=== PATIENT | male | born 1945 | race Hispanic/Latino ===

== ENCOUNTER 2018-03-31 14:33 | Inpatient (IN) | payer MEDICARE ==
[2018-03-31 14:33] VITALS: BMI 22.9
[2018-03-31] MEDS ORDERED: Aspirin 325 mg EC Tablets PO STA (14:54)
[2018-03-31 15:16] LABS: BASO % 0.5 % (0.0-2.0); EOS # 0.1 K/uL (0.0-0.7); HEMOGLOBIN 14.1 g/dL (12.0-18.0); LYMPH % 19.5 % (20.0-40.0); MEAN CELL VOLUME 92.3 fL (80.0-94.0); MEAN CORPUSCULAR HEMOGLOBIN 31.8 pg (27.0-31.0); MEAN CORPUSCULAR HGB CONC 34.5 g/dL (33.0-37.0); MEAN PLATELET VOLUME 8.9 fL (7.2-11.7); MONO # 0.5 K/uL (0.0-0.8); MONO % 10.3 % (0.0-10.0); NEUT # 3.6 K/uL (1.8-7.0); NEUT % 67.7 % (50.0-75.0); RBC 4.41 Mil/uL (4.40-5.90); RED CELL DISTRIBUTION WIDTH 13.7 % (11.5-14.5); WHITE BLOOD COUNT 5.3 K/uL (4.8-10.8)
--- NOTE | 2018-03-31 15:16 | C.PDOC ---
History Of Present Illness 72 year old male with a history of hypertension presents to the emergency department with complaints of chest pain which has worsened over the last few days. Patient reports that his pain is left-sided and sharp, and often lasts for a few minutes at a time. Patient reports no inciting factors, and denies fever or other complaints. Time Seen by Provider: 03/31/18 14:39 Chief Complaint (Nursing): Chest Pain History Per: Patient History/Exam Limitations: no limitations Onset/Duration Of Symptoms: Days Current Symptoms Are (Timing): Worse Quality: Sharp, "Pain" Past Medical History Reviewed: Historical Data, Nursing Documentation, Vital Signs Vital Signs: Last Vital Signs Temp 98.5 F 03/31/18 16:36 Pulse 60 03/31/18 16:36 Resp 18 03/31/18 16:36 BP 168/89 H 03/31/18 16:36 Pulse Ox 99 03/31/18 16:36 - Medical History PMH: Hypercholesterolemia, Seizures Surgical History: No Surg Hx - [facility] Procedures ESOPHAGOGASTRODUODENOSCOPY [EGD] W/CLOSED BIOPSY (04/04/04) Family History: States: No Known Family Hx - Social History Hx Alcohol Use: No Hx Substance Use: No - Immunization History Hx Tetanus Toxoid Vaccination: No Review Of Systems Except As Marked, All Systems Reviewed And Found Negative. Cardiovascular: Positive for: Chest Pain Physical Exam - Physical Exam Appears: Non-toxic, No Acute Distress Skin: Warm, Dry Head: Atraumatic, Normacephalic Eye(s): bilateral: Normal Inspection Nose: Normal Oral Mucosa: Moist Neck: Normal ROM, Supple Chest: Symmetrical, No Deformity, No Tenderness Cardiovascular: Rhythm Regular, No Murmur Respiratory: Normal Breath Sounds, No Rales, No Rhonchi, No Wheezing Gastrointestinal/Abdominal: Normal Exam, Soft, No Tenderness, No Guarding, No Rebound Neurological/Psych: Oriented x3, Normal Speech, Normal Cognition ED Course And Treatment - Laboratory Results Result Diagrams: 03/31/18 15:14 03/31/18 15:14 ECG Rhythm: Sinus Rhythm (68bpm), Nonspecific Changes O2 Sat by Pulse Oximetry: 98 (RA) Pulse Ox Interpretation: Normal Medical Decision Making Medical Decision Making: Plan: EKG CMP Troponin CBC PTT Prothrombin CXR One [facility] Ecotrin 325mg PO cp ro acs- labs imaging pending 400: pt reassesd dr mesa bedside accpets case for obs. Disposition - Disposition Disposition: HOSPITALIZED Disposition Time: 05:00 Condition: STABLE - Clinical Impression Clinical Impression: Chest pain - Scribe Statement The provider has reviewed the documentation as recorded by the Scribe (Ender Adam) Provider Attestation: All medical record entries made by the Scribe were at my direction and personally dictated by me. I have reviewed the chart and agree that the record accurately reflects my personal performance of the history, physical exam, medical decision making, and the department course for this patient. I have also personally directed, reviewed, and agree with the discharge instructions and disposition. Decision To Admit - Pt Status Changed To: Hospital Disposition Of: Observation - . Bed Request Type: Telemetry Admitting Physician: Israel Mesa Patient Diagnosis: Chest pain
[2018-03-31 15:25] LABS: INR 1.1; PROTHROMBIN TIME 12.2 SECONDS (9.7-12.2)
[2018-03-31 15:30] LABS: ALB/GLOB RATIO 1.4 (1.0-2.1); ALBUMIN 4.1 g/dL (3.5-5.0); ALT/SGPT 48 U/L (21-72); AST/SGOT 34 U/L (17-59); BLOOD UREA NITROGEN 11 mg/dL (9-20); CALCIUM 9.3 mg/dl (8.6-10.4); GFR AFRICAN-AMERICAN > 60; GFR NON-AFRICAN AMERICAN > 60
[2018-03-31] MEDS: Phenytoin 100 mg/4 ml Oral Susp UD PO SCH ×2 (16:28→23:09)
--- NOTE | 2018-03-31 16:42 | RAD ---
PROCEDURE: CHEST RADIOGRAPH, 1 VIEW HISTORY: chest pain COMPARISON: No prior FINDINGS: LUNGS: Mild hyperinflation with the coarsened interstitial markings; ; rule out underlying emphysema or COPD. . No focal consolidation. PLEURA: No pneumothorax or pleural fluid seen. CARDIOVASCULAR: Cardiomegaly OSSEOUS STRUCTURES: No significant abnormalities. VISUALIZED UPPER ABDOMEN: Normal. OTHER FINDINGS: None. IMPRESSION: Mild hyperinflation with the coarsened interstitial markings; ; rule out underlying emphysema or COPD. . No focal consolidation.
--- NOTE | 2018-03-31 23:30 | CP.PCM.HP ---
Past Patient History - Infectious Disease Hx of Infectious Diseases: None - Past Social History Smoking Status: Never Smoked - CARDIAC Hx Hypercholesterolemia: Yes - NEUROLOGICAL Hx Seizures: Yes - MUSCULOSKELETAL/RHEUMATOLOGICAL Hx Falls: No - PSYCHIATRIC Hx Substance Use: No - ANESTHESIA Hx Anesthesia: No Meds Allergies/Adverse Reactions: Allergies Allergy/AdvReac Type Severity Reaction Status Date / Time No Known Allergies Allergy Verified 03/03/18 14:36 Results - Vital Signs Recent Vital Signs: Last Vital Signs Temp 98 F 03/31/18 22:38 Pulse 55 L 03/31/18 23:13 Resp 20 03/31/18 22:38 BP 138/81 03/31/18 22:38 Pulse Ox 98 03/31/18 22:38 - Labs Result Diagrams: 03/31/18 15:14 03/31/18 15:14 Labs: Laboratory Results - last 24 hr 03/31/18 03/31/18 03/31/18 15:14 15:14 15:14 WBC 5.3 RBC 4.41 Hgb 14.1 Hct 40.7 MCV 92.3 MCH 31.8 H MCHC 34.5 RDW 13.7 Plt Count 155 MPV 8.9 Neut % (Auto) 67.7 Lymph % (Auto) 19.5 L [place] % (Auto) 10.3 H Eos % (Auto) 2.0 Baso % (Auto) 0.5 Neut # (Auto) 3.6 Lymph # (Auto) 1.0 [place] # (Auto) 0.5 Eos # (Auto) 0.1 Baso # (Auto) 0.0 PT 12.2 INR 1.1 APTT 31 Sodium 135 Potassium 3.7 Chloride 98 Carbon Dioxide 27 Anion Gap 13 BUN 11 Creatinine 0.8 Est GFR ( Amer) > 60 Est GFR (Non-Af Amer) > 60 Random Glucose 108 Calcium 9.3 Total Bilirubin 0.6 AST 34 ALT 48 Alkaline Phosphatase 67 Total Creatine Kinase CK-MB (Mass) Troponin I < 0.0120 Total Protein 7.1 Albumin 4.1 Globulin 2.9 Albumin/Globulin Ratio 1.4 03/31/18 17:38 WBC RBC Hgb Hct MCV MCH MCHC RDW Plt Count MPV Neut % (Auto) Lymph % (Auto) [place] % (Auto) Eos % (Auto) Baso % (Auto) Neut # (Auto) Lymph # (Auto) [place] # (Auto) Eos # (Auto) Baso # (Auto) PT INR APTT Sodium Potassium Chloride Carbon Dioxide Anion Gap BUN Creatinine Est GFR ( Amer) Est GFR (Non-Af Amer) Random Glucose Calcium Total Bilirubin AST ALT Alkaline Phosphatase Total Creatine Kinase 59 CK-MB (Mass) 2.00 Troponin I < 0.0120 Total Protein Albumin Globulin Albumin/Globulin Ratio
--- NOTE | 2018-04-01 05:21 | CON ---
DATE: 03/31/2018 CARDIOLOGY CONSULTATION REASON FOR CONSULTATION: Chest pain. HISTORY OF PRESENT ILLNESS: The patient is a 72-year-old white male, nonsmoker, has a history of hypertension, presented to the emergency room because of chest pain that is sharp in nature that he has been experiencing for the past few days. The patient denies any reason for chest discomfort. He does report weakness and dizziness at times. The patient presented on 07/31/2018 to [facility] and was admitted; however, apparently he was not happy with the service that was done there and he decided at this time to come to [facility]. The workup at that time included head CT scan without contrast, which was unremarkable. Carotid ultrasound, which revealed no significant disease with antegrade flow in post vertebral artery. An echocardiographic study, which revealed normal ejection fraction with mild hypokinesis in the mid inferolateral wall. Initial EKG during admission revealed normal sinus rhythm with nonspecific ST-T wave changes and troponins were negative x3 at that time. SOCIAL HISTORY: The patient is nonsmoker. He remembers smoking at age 17 only. He is . He lives with his sister and his daughter. MEDICATIONS: Crestor 10 mg once a day, Dilantin 100 mg every 8 hours, aspirin 81 mg once a day, Lovenox 40 mg subcutaneous once a day, Synthroid 25 mcg once a day, Pepcid 40 mg twice a day. REVIEW OF SYSTEMS: No nausea or vomiting. No fever or chills. PAST MEDICAL HISTORY: Hypertension. PHYSICAL EXAMINATION: GENERAL: The patient is an elderly male, who does not appear to be in acute distress. VITAL SIGNS: Blood pressure 168/89, heart rate 60, temperature 98.5, respirations 18. HEENT: Normocephalic. CHEST: Clear. HEART: S1 and S2 regular. ABDOMEN: Soft. EXTREMITIES: No edema. LABORATORY DATA: SMA-7: Sodium 135, potassium 3.7, chloride 98, CO2 27, glucose 108, BUN 11, creatinine 0.8. One set of troponin is negative. CBC: WBC 5.3, hemoglobin 14.1, hematocrit 40.7, and platelet count 155,000. Dilantin level is subtherapeutic at 6. PT/PTT and INR are within normal limits. DIAGNOSTIC DATA: EKG revealed normal sinus rhythm at the rate of 68. ASSESSMENT: 1. Chest pain, myocardial infarction is ruled out. 2. Hypertension. 3. History of seizures. 4. Segmental hypokinesis on recent echocardiographic study. RECOMMENDATIONS: Continue current Crestor 10 mg once a day, aspirin 81 mg once a day, Synthroid 25 mcg once a day. Start Crestor at 20 mg once a day. I will review the echocardiographic study and consider cardiac catheterization if the patient agrees for the procedure and is cleared from other medical issues. Ashu Tong MD
[2018-04-01] MEDS: Levothyroxine 25 MCG TAB PO SCH (05:35)
[2018-04-01] MEDS: Phenytoin 100 mg/4 ml Oral Susp UD PO SCH ×3 (05:35→21:54)
[2018-04-01] MEDS: Enoxaparin 40 mg Syringe SC SCH (09:07)
--- NOTE | 2018-04-01 09:37 | HP ---
CHIEF COMPLAINT: Left-sided chest pain. HISTORY OF PRESENT ILLNESS: This is a 72-year-old white male who is nonsmoker with a no known past medical history of diabetes, hypertension, hyperlipidemia. The patient is taking seizure medication, and the patient lives with his brother and sister. He is compliant with the diet medication for the last two days. He has been having left-sided sharp chest pain, lasting about 2 minutes. It is in the left precordial area. It is mostly nonexertional, not associated with diaphoresis or dizziness. No cough, no fever, no dyspepsia, no pleurisy. There is no history of nausea, vomiting. The patient denies any abdominal pain. The patient denies any joint pain. The patient denies any history of any relation with exertion. The patient denies any polyuria, polydipsia, polyphagia. He denies any hematuria, pyuria. He denies any sneezing, itchy eyes, itchy nose. There is no history of trauma or fall. There is no history of seizure-like activity. The patient denies any tingling, numbness, or paresthesias. The patient denies any cough. CURRENT MEDICATIONS: The patient is on Dilantin and Synthroid. SOCIAL HISTORY: Nonsmoker, and he denies drinking. FAMILY HISTORY: Noncontributory. PHYSICAL EXAMINATION: GENERAL: An elderly male in no acute distress. VITAL SIGNS: Blood pressure 138/81, pulse 55, respiratory rate 20, temperature 96. SKIN: No purpura. No petechiae. No bruises. No ecchymosis. No scarring. HEENT: Atraumatic, normocephalic. Negative pallor. Negative jaundice. Extraocular movements are intact. NECK: Supple. Flat neck veins. No JVD. No lymph node. No thyromegaly. No carotid bruit. CHEST WALL: Bilateral symmetrical. LUNGS: Bilaterally clear. No rales, no rhonchi. CVS: S1, S2 plus. S4 positive. ABDOMEN: Soft, nontender. Bowel sounds are positive. No masses. GENITALIA: Normal. RECTAL: Negative for enlarged prostate. EXTREMITIES: No clubbing, cyanosis, or edema. BOARDING KENNEL OR CATTERY OPERATOR: The patient is awake, alert, oriented x3. Cranial nerve II through XII are normal. Power is 5/5 x4. Plantar's are downgoing. ASSESSMENT: 1. Chest pain, rule out myocardial infarction. 2. Hypertension. 3. Seizure disorder. 4. Hypothyroidism. PLAN: Admit. Detailed orders written. Seen and examined. Israel Mesa MD
--- NOTE | 2018-04-01 20:56 | PN ---
DATE: 04/01/2018 SUBJECTIVE: The patient denies chest pain or dizziness at this time. He was noted to have sinus bradycardia in the 50s. The lowest heart rate was 48 today. PHYSICAL EXAMINATION: VITAL SIGNS: Blood pressure 114/75, heart rate 58, temperature 98.6, respirations 20. HEENT: Normocephalic. CHEST: Clear. HEART: S1 and S2 regular. EXTREMITIES: No edema. LABORATORY DATA: Three sets of troponins are negative. within normal limits. ASSESSMENT: 1. Chest pain, myocardial infarction ruled out. 2. Hypertension. 3. Sinus bradycardia. 4. History of seizure. 5. Segmental hypokinesis on a recent echocardiographic study. RECOMMENDATIONS: Continue current Cozaar 25 mg once a day, Crestor 10 mg once a day, Dilantin 100 mg four times a day, and Synthroid 25 mcg once a day. We will discuss the indication of cardiac catheterization with the primary physician, Dr. Israel Mesa. Ashu Tong MD
--- NOTE | 2018-04-01 23:37 | CP.PCM.PN ---
Objective - Vital Signs/Intake and Output Vital Signs (last 24 hours): Temp Pulse Resp BP Pulse Ox 97.9 F 60 16 104/70 96 04/01/18 22:00 04/01/18 22:00 04/01/18 22:00 04/01/18 22:00 04/01/18 16:00 Intake and Output: 04/01/18 04/02/18 18:59 06:59 Intake Total 420 Balance 420 - Medications Medications: Current Medications Aspirin (Ecotrin) 81 mg PO DAILY [facility] Last Admin: 04/01/18 09:07 Dose: 81 mg Enoxaparin Sodium (Lovenox) 40 mg SC DAILY [facility] Last Admin: 04/01/18 09:07 Dose: 40 mg Famotidine (Pepcid) 40 mg PO DAILY [facility] Last Admin: 04/01/18 09:07 Dose: 40 mg Levothyroxine Sodium (Synthroid) 25 mcg PO DAILY@0630 [facility] Last Admin: 04/01/18 05:35 Dose: 25 mcg Losartan Potassium (Cozaar) 25 mg PO DAILY [facility] Last Admin: 04/01/18 09:07 Dose: 25 mg Phenytoin (Dilantin) 100 mg PO Q8 [facility] Last Admin: 04/01/18 21:54 Dose: 100 mg Rosuvastatin Calcium (Crestor) 10 mg PO HS [facility] Last Admin: 04/01/18 21:54 Dose: 10 mg - Labs Labs: 03/31/18 15:14 03/31/18 15:14 PT 12.2 SECONDS (9.7-12.2) 03/31/18 15:14 INR 1.1 03/31/18 15:14 APTT 31 SECONDS (21-34) 03/31/18 15:14
--- NOTE | 2018-04-02 05:17 | PN ---
DATE: 04/01/2018 SUBJECTIVE: The patient denies any chest pain today. He denies any nausea or vomiting. PHYSICAL EXAMINATION: LUNGS: Clear. CVS: S1, S2 are regular. ABDOMEN: Soft. ASSESSMENT: 1. Chest pain. Bradycardia. Rule out acute myocardial infarction. 2. Hypertension. PLAN: Medical management. Cardiology evaluation. Monitor the patient. Israel Mesa MD
[2018-04-02] MEDS: Phenytoin 100 mg/4 ml Oral Susp UD PO SCH ×3 (06:00→21:01)
[2018-04-02] MEDS: Levothyroxine 25 MCG TAB PO SCH (06:01)
--- NOTE | 2018-04-02 06:02 | PN ---
DATE: 04/02/2018 SUBJECTIVE: The patient denies any chest pain today. He denies any nausea or vomiting. PHYSICAL EXAMINATION: LUNGS: Clear. CVS: S1, S2, regular. ABDOMEN: Soft. ASSESSMENT: 1. Chest pain. Bradycardia. Rule out acute myocardial infarction. 2. Hypertension. PLAN: Medical management. Cardiology evaluation. Monitor the patient. Israel Mesa MD
[2018-04-02] MEDS: Enoxaparin 40 mg Syringe SC SCH (09:10)
[2018-04-02 11:17] LABS: BASO % 0.3 % (0.0-2.0); EOS # 0.2 K/uL (0.0-0.7); EOS % 2.8 % (0.0-4.0); HEMOGLOBIN 13.3 g/dL (12.0-18.0); LYMPH # 0.9 K/uL (1.0-4.3); LYMPH % 14.5 % (20.0-40.0); MEAN CELL VOLUME 93.6 fL (80.0-94.0); MEAN CORPUSCULAR HEMOGLOBIN 31.4 pg (27.0-31.0); MEAN CORPUSCULAR HGB CONC 33.6 g/dL (33.0-37.0); MEAN PLATELET VOLUME 9.1 fL (7.2-11.7); MONO # 0.7 K/uL (0.0-0.8); MONO % 11.5 % (0.0-10.0); NEUT # 4.2 K/uL (1.8-7.0); NEUT % 70.9 % (50.0-75.0); NRBC % 0.1 % (0.0-2.0); RBC 4.24 Mil/uL (4.40-5.90)
[2018-04-02 11:34] LABS: ALB/GLOB RATIO 1.4 (1.0-2.1); ALBUMIN 3.7 g/dL (3.5-5.0); ALT/SGPT 48 U/L (21-72); AST/SGOT 30 U/L (17-59); BLOOD UREA NITROGEN 19 mg/dL (9-20); CALCIUM 8.9 mg/dl (8.6-10.4); GFR AFRICAN-AMERICAN > 60; GFR NON-AFRICAN AMERICAN > 60
--- NOTE | 2018-04-02 19:14 | PN ---
DATE: 04/02/2018 SUBJECTIVE: The patient denies chest pain. He complains of weakness and at times postural dizziness. PHYSICAL EXAMINATION: VITAL SIGNS: Blood pressure /75, heart rate 96, temperature 98, respirations 18. HEENT: Normocephalic. CHEST: Clear. HEART: S1 and S2 regular. EXTREMITIES: No edema. LABORATORY DATA: Today's SMA-7 is entirely within normal limits. Today's hemoglobin and hematocrit 13.3 and 39.7. White count and platelet count are within normal limits. ASSESSMENT: 1. Chest pain, myocardial infarction was ruled out. 2. Segmental hypokinesis on a recent echocardiographic study suggestive of underlying coronary artery disease. 3. Hypothyroidism. 4. Hypertension. RECOMMENDATIONS: Continue Cozaar 25 mg once a day, aspirin 81 mg once a day, Lovenox 40 mg once a day, Synthroid 25 mcg once a day. Cardiac catheterization was recommended. Procedure as well as risk were explained to the patient, understood and agreed for the procedure. The patient scheduled for tomorrow cath at 12 noon at [facility]. Ashu Tong MD
--- NOTE | 2018-04-02 23:47 | CP.PCM.PN ---
Subjective - Date & Time of Evaluation Date of Evaluation: 04/02/18 Time of Evaluation: 19:00 - Subjective Subjective: Pt seen and examined at bedside Objective - Vital Signs/Intake and Output Vital Signs (last 24 hours): Temp Pulse Resp BP Pulse Ox 98 F 59 L 20 125/81 95 04/02/18 16:16 04/02/18 20:29 04/02/18 16:16 04/02/18 16:16 04/02/18 16:16 Intake and Output: 04/02/18 04/03/18 18:59 06:59 Intake Total 800 Output Total 600 Balance -600 800 - Medications Medications: Current Medications Aspirin (Ecotrin) 81 mg PO DAILY [facility] Last Admin: 04/02/18 09:10 Dose: 81 mg Famotidine (Pepcid) 40 mg PO DAILY [facility] Last Admin: 04/02/18 09:10 Dose: 40 mg Levothyroxine Sodium (Synthroid) 25 mcg PO DAILY@0630 [facility] Last Admin: 04/02/18 06:01 Dose: 25 mcg Losartan Potassium (Cozaar) 25 mg PO DAILY [facility] Last Admin: 04/02/18 09:10 Dose: 25 mg Phenytoin (Dilantin) 100 mg PO Q8 [facility] Last Admin: 04/02/18 21:01 Dose: 100 mg Rosuvastatin Calcium (Crestor) 10 mg PO HS [facility] Last Admin: 04/02/18 21:01 Dose: 10 mg - Labs Labs: 04/02/18 11:06 04/02/18 11:06 PT 12.2 SECONDS (9.7-12.2) 03/31/18 15:14 INR 1.1 03/31/18 15:14 APTT 31 SECONDS (21-34) 03/31/18 15:14
[2018-04-03] MEDS: Phenytoin 100 mg/4 ml Oral Susp UD PO SCH ×3 (05:30→21:11)
[2018-04-03] MEDS: Levothyroxine 25 MCG TAB PO SCH (05:30)
[2018-04-03 08:09] LABS: BASO % 0.6 % (0.0-2.0); EOS # 0.2 K/uL (0.0-0.7); EOS % 3.5 % (0.0-4.0); HEMOGLOBIN 13.9 g/dL (12.0-18.0); LYMPH % 17.7 % (20.0-40.0); MEAN CELL VOLUME 92.3 fL (80.0-94.0); MEAN CORPUSCULAR HEMOGLOBIN 31.8 pg (27.0-31.0); MEAN CORPUSCULAR HGB CONC 34.4 g/dL (33.0-37.0); MONO # 0.6 K/uL (0.0-0.8); NEUT # 3.5 K/uL (1.8-7.0); NEUT % 66.2 % (50.0-75.0); NRBC % 0.1 % (0.0-2.0); RBC 4.38 Mil/uL (4.40-5.90); RED CELL DISTRIBUTION WIDTH 13.7 % (11.5-14.5); WHITE BLOOD COUNT 5.4 K/uL (4.8-10.8)
[2018-04-03 08:16] LABS: ALB/GLOB RATIO 1.3 (1.0-2.1); ALBUMIN 3.6 g/dL (3.5-5.0); ALT/SGPT 49 U/L (21-72); AST/SGOT 32 U/L (17-59); BLOOD UREA NITROGEN 13 mg/dL (9-20); GFR AFRICAN-AMERICAN > 60; GFR NON-AFRICAN AMERICAN > 60
[2018-04-03] MEDS ORDERED: Lidocaine 2% MPF (5 ml) Inj ONE (11:54)
[2018-04-03] MEDS ORDERED: Iodixanol 320 MG/ML 100 ML BOTTLE IV ONE ×2 (11:54→12:44)
[2018-04-03] MEDS ORDERED: Midazolam 2 MG/2 ML VIAL ONE (11:55)
[2018-04-03] MEDS ORDERED: Sodium Chloride 0.9% 500 ML IV SCH (13:30)
--- NOTE | 2018-04-03 23:58 | CP.PCM.PN ---
Subjective - Date & Time of Evaluation Date of Evaluation: 04/03/18 Time of Evaluation: 17:35 - Subjective Subjective: Pt seen and examined at bedside Objective - Vital Signs/Intake and Output Vital Signs (last 24 hours): Temp Pulse Resp BP Pulse Ox 97.9 F 72 20 100/62 95 04/03/18 16:08 04/03/18 17:00 04/03/18 16:08 04/03/18 16:08 04/03/18 16:08 Intake and Output: 04/03/18 04/04/18 18:59 06:59 Intake Total 1400 Balance 1400 - Medications Medications: Current Medications Aspirin (Ecotrin) 81 mg PO DAILY [facility] Last Admin: 04/03/18 09:54 Dose: Not Given Famotidine (Pepcid) 40 mg PO DAILY [facility] Last Admin: 04/03/18 09:54 Dose: Not Given Levothyroxine Sodium (Synthroid) 25 mcg PO DAILY@0630 [facility] Last Admin: 04/03/18 05:30 Dose: 25 mcg Losartan Potassium (Cozaar) 25 mg PO DAILY [facility] Last Admin: 04/03/18 09:53 Dose: 25 mg Phenytoin (Dilantin) 100 mg PO Q8 [facility] Last Admin: 04/03/18 21:11 Dose: 100 mg Rosuvastatin Calcium (Crestor) 10 mg PO HS [facility] Last Admin: 04/03/18 21:10 Dose: 10 mg - Labs Labs: 04/03/18 08:17 04/03/18 07:50 PT 12.2 SECONDS (9.7-12.2) 03/31/18 15:14 INR 1.1 03/31/18 15:14 APTT 31 SECONDS (21-34) 03/31/18 15:14
[2018-04-04] MEDS: Phenytoin 100 mg/4 ml Oral Susp UD PO SCH ×3 (06:29→22:15)
[2018-04-04] MEDS: Levothyroxine 25 MCG TAB PO SCH (06:29)
--- NOTE | 2018-04-04 07:42 | CARDCATH ---
PROCEDURE DATE: 04/03/2018 LEFT HEART CATHETERIZATION INDICATIONS: The patient is a 72-year-old white male who presented because of chest pain. Myocardial infarction was ruled out. The patient was reported to have segmental hypokinesis on the recent echocardiographic study performed in [facility]. Cardiac catheterization was recommended. The procedure and its risks were fully explained to the patient who understood them and agreed for the procedure. PROCEDURE: After local infiltration with 1% lidocaine, a 6-Kazakh sheath was placed in the right femoral artery. Left and right coronary angiography was performed with 6-Kazakh JL4 and JR2 diagnostic catheters. Left ventriculogram was performed with a 6-Kazakh pigtail catheter. The patient tolerated the procedure well without any complications. ANGIOGRAPHIC FINDINGS: Selective injection of the left coronary artery revealed the left main to be a large caliber vessel that bifurcated into medium-sized LAD and medium-sized ramus and medium-sized circumflex artery. LAD had a proximal 50% to 60% stenosis. The rest of the left coronary artery circulation was angiographically unremarkable. Selective injection of the right coronary artery revealed an anterior take-off of that vessel, which was large caliber, ectatic, and dominant vessel. There was no significant disease. Left ventriculogram performed in [facility] projection revealed normal wall motion. Overall ejection fraction was estimated at 65%. CONCLUSION: A 56% proximal left anterior descending stenosis. RECOMMENDATIONS: Continue with medical management as recommended. Ashu Tong MD
[2018-04-04 07:48] LABS: BASO % 0.6 % (0.0-2.0); EOS # 0.2 K/uL (0.0-0.7); EOS % 3.2 % (0.0-4.0); HEMOGLOBIN 13.6 g/dL (12.0-18.0); LYMPH % 13.9 % (20.0-40.0); MEAN CELL VOLUME 92.4 fL (80.0-94.0); MEAN CORPUSCULAR HEMOGLOBIN 32.1 pg (27.0-31.0); MEAN CORPUSCULAR HGB CONC 34.8 g/dL (33.0-37.0); MEAN PLATELET VOLUME 8.9 fL (7.2-11.7); MONO # 0.8 K/uL (0.0-0.8); MONO % 10.9 % (0.0-10.0); NEUT % 71.4 % (50.0-75.0); NRBC % 0.1 % (0.0-2.0); RBC 4.25 Mil/uL (4.40-5.90); RED CELL DISTRIBUTION WIDTH 14.1 % (11.5-14.5)
[2018-04-04 08:00] LABS: ALB/GLOB RATIO 1.4 (1.0-2.1); ALBUMIN 3.7 g/dL (3.5-5.0); ALT/SGPT 54 U/L (21-72); AST/SGOT 30 U/L (17-59); BLOOD UREA NITROGEN 14 mg/dL (9-20); CALCIUM 8.9 mg/dl (8.6-10.4); GFR AFRICAN-AMERICAN > 60; GFR NON-AFRICAN AMERICAN > 60
--- NOTE | 2018-04-04 19:47 | PN ---
DATE: 04/04/2018 SUBJECTIVE: The patient denies any chest pain or shortness of breath. No groin bleeding. PHYSICAL EXAMINATION: VITAL SIGNS: Blood pressure 123/83, heart 67, temperature 97.5, respirations 20. HEENT: Normocephalic. CHEST: Clear. HEART: S1 and S2, regular. ABDOMEN: Soft. EXTREMITIES: No groin hematoma and adequate distal pulses. LABORATORY DATA: Hemoglobin and hematocrit 15.6 and 39.3. White count and platelet count are within normal limit. SMA-7 today is entirely within normal limit. ASSESSMENT: 1. Chest pain, myocardial infarction was ruled out. 2. A 50 to 60% stenosis of the proximal left anterior descending. 3. Hypothyroidism. RECOMMENDATION: Continue aspirin 81 mg once a day, Cozaar 25 mg once a day, Crestor 10 mg once a day, Synthroid 25 mcg once a day. Case was discussed with Dr. Israel Mesa and a trial of conservative medical therapy is recommended. Beta-blockers are contraindicated in view of history of bradycardia on presentation. Ashu Tong MD
--- NOTE | 2018-04-04 22:25 | CP.PCM.PN ---
Subjective - Date & Time of Evaluation Date of Evaluation: 04/04/18 Time of Evaluation: 18:35 - Subjective Subjective: Pt seen and examined at bedside, Objective - Vital Signs/Intake and Output Vital Signs (last 24 hours): Temp Pulse Resp BP Pulse Ox 98.6 F 68 20 116/82 95 04/04/18 16:00 04/04/18 16:00 04/04/18 16:00 04/04/18 16:00 04/04/18 16:00 Intake and Output: 04/04/18 04/05/18 18:59 06:59 Intake Total 800 Balance 800 - Medications Medications: Current Medications Aspirin (Ecotrin) 81 mg PO DAILY [facility] Last Admin: 04/04/18 09:14 Dose: 81 mg Famotidine (Pepcid) 40 mg PO DAILY [facility] Last Admin: 04/04/18 09:14 Dose: 40 mg Levothyroxine Sodium (Synthroid) 25 mcg PO DAILY@0630 [facility] Last Admin: 04/04/18 06:29 Dose: 25 mcg Losartan Potassium (Cozaar) 25 mg PO DAILY [facility] Last Admin: 04/04/18 09:14 Dose: 25 mg Phenytoin (Dilantin) 100 mg PO Q8 [facility] Last Admin: 04/04/18 22:15 Dose: 100 mg Rosuvastatin Calcium (Crestor) 10 mg PO HS [facility] Last Admin: 04/04/18 22:15 Dose: 10 mg - Labs Labs: 04/04/18 07:30 04/04/18 07:30 PT 12.2 SECONDS (9.7-12.2) 03/31/18 15:14 INR 1.1 03/31/18 15:14 APTT 31 SECONDS (21-34) 03/31/18 15:14
[2018-04-05] MEDS: Levothyroxine 25 MCG TAB PO SCH (05:32)
[2018-04-05] MEDS: Phenytoin 100 mg/4 ml Oral Susp UD PO SCH ×3 (05:32→21:20)
[2018-04-05 08:52] LABS: BASO % 0.5 % (0.0-2.0); EOS # 0.2 K/uL (0.0-0.7); EOS % 3.3 % (0.0-4.0); HEMOGLOBIN 13.6 g/dL (12.0-18.0); LYMPH % 17.2 % (20.0-40.0); MEAN CELL VOLUME 92.7 fL (80.0-94.0); MEAN CORPUSCULAR HEMOGLOBIN 31.7 pg (27.0-31.0); MEAN CORPUSCULAR HGB CONC 34.2 g/dL (33.0-37.0); MEAN PLATELET VOLUME 9.7 fL (7.2-11.7); MONO # 0.7 K/uL (0.0-0.8); MONO % 11.9 % (0.0-10.0); NEUT % 67.1 % (50.0-75.0); RBC 4.29 Mil/uL (4.40-5.90)
[2018-04-05 09:11] LABS: ALB/GLOB RATIO 1.3 (1.0-2.1); ALBUMIN 3.6 g/dL (3.5-5.0); ALT/SGPT 45 U/L (21-72); AST/SGOT 26 U/L (17-59); BLOOD UREA NITROGEN 13 mg/dL (9-20); CALCIUM 8.9 mg/dl (8.6-10.4); GFR AFRICAN-AMERICAN > 60; GFR NON-AFRICAN AMERICAN > 60
--- NOTE | 2018-04-05 16:21 | CP.PCM.PN ---
Subjective - Date & Time of Evaluation Date of Evaluation: 04/05/18 Time of Evaluation: 11:00 - Subjective Subjective: Alert, awake, no sob or chest pains. Objective - Vital Signs/Intake and Output Vital Signs (last 24 hours): Temp Pulse Resp BP Pulse Ox 97.9 F 60 20 107/67 93 L 04/05/18 08:12 04/05/18 08:12 04/05/18 08:12 04/05/18 08:12 04/05/18 08:12 Intake and Output: 04/05/18 04/05/18 06:59 18:59 Intake Total 240 800 Output Total 1500 Balance -1260 800 - Medications Medications: Current Medications Aspirin (Ecotrin) 81 mg PO DAILY [facility] Last Admin: 04/05/18 09:57 Dose: 81 mg Famotidine (Pepcid) 40 mg PO DAILY [facility] Last Admin: 04/05/18 09:57 Dose: 40 mg Levothyroxine Sodium (Synthroid) 25 mcg PO DAILY@0630 [facility] Last Admin: 04/05/18 05:32 Dose: 25 mcg Losartan Potassium (Cozaar) 25 mg PO DAILY [facility] Last Admin: 04/05/18 09:57 Dose: 25 mg Phenytoin (Dilantin) 100 mg PO Q8 [facility] Last Admin: 04/05/18 14:14 Dose: 100 mg Rosuvastatin Calcium (Crestor) 10 mg PO HS [facility] Last Admin: 04/04/18 22:15 Dose: 10 mg - Labs Labs: 04/05/18 08:32 04/05/18 08:32 PT 12.2 SECONDS (9.7-12.2) 03/31/18 15:14 INR 1.1 03/31/18 15:14 APTT 31 SECONDS (21-34) 03/31/18 15:14 Assessment and Plan - Assessment and Plan (Free Text) Assessment: 72 year old male admitted with chest pain, s/p cardiac cath 2 days ago, seen and examined. Alert and responsive denies chest pain or distress. Ambulates with walker. Discussed with DR Mesa, plan to discharge home today with home care, home PT. Walker arranged for home. Advised to follow up with PMD in 1 week.
--- NOTE | 2018-04-05 20:54 | PN ---
DATE: 04/05/2018 SUBJECTIVE: The patient denies any chest pain or shortness of breath, but he complains of weakness. No reports of groin bleeding and no reported ventricular arrhythmia. PHYSICAL EXAMINATION: VITAL SIGNS: Blood pressure 107/67, heart rate 60, temperature 97.9, respirations 20. HEENT: Normocephalic. CHEST: Clear. HEART: S1 and S2 regular. EXTREMITIES: No edema. LABORATORY DATA: Today's SMA-7 is within normal limit except for creatinine 0.7. Today's hemoglobin and hematocrit, white count and platelet count are within normal limit. ASSESSMENT: 1. Chest pain. The patient has disease of the proximal left anterior descending. 2. Hypothyroidism. 3. Hypertension. 4. Seizure disorder. RECOMMENDATIONS: Continue Cozaar 25 mg once a day, Crestor 10 mg once a day, Dilantin 100 mg every 8 hours, aspirin 81 mg once a day, Synthroid 25 mcg once a day. . Ashu Tong MD
[2018-04-05 23:31] VITALS: RESP 20
[2018-04-06] MEDS: Phenytoin 100 mg/4 ml Oral Susp UD PO SCH ×2 (05:54→13:27)
[2018-04-06] MEDS: Levothyroxine 25 MCG TAB PO SCH (05:54)
--- NOTE | 2018-04-06 07:20 | CP.PCM.PN ---
Subjective - Date & Time of Evaluation Date of Evaluation: 04/05/18 Time of Evaluation: 18:00 - Subjective Subjective: Pt is seen and examined, Objective - Vital Signs/Intake and Output Vital Signs (last 24 hours): Temp Pulse Resp BP Pulse Ox 98 F 60 20 100/63 96 04/05/18 23:26 04/05/18 23:26 04/05/18 23:26 04/05/18 23:26 04/05/18 23:26 - Medications Medications: Current Medications Aspirin (Ecotrin) 81 mg PO DAILY [facility] Last Admin: 04/05/18 09:57 Dose: 81 mg Famotidine (Pepcid) 40 mg PO DAILY [facility] Last Admin: 04/05/18 09:57 Dose: 40 mg Levothyroxine Sodium (Synthroid) 25 mcg PO DAILY@0630 [facility] Last Admin: 04/06/18 05:54 Dose: 25 mcg Losartan Potassium (Cozaar) 25 mg PO DAILY [facility] Last Admin: 04/05/18 09:57 Dose: 25 mg Phenytoin (Dilantin) 100 mg PO Q8 [facility] Last Admin: 04/06/18 05:54 Dose: 100 mg Rosuvastatin Calcium (Crestor) 10 mg PO HS [facility] Last Admin: 04/05/18 21:20 Dose: 10 mg - Labs Labs: 04/05/18 08:32 04/05/18 08:32 PT 12.2 SECONDS (9.7-12.2) 03/31/18 15:14 INR 1.1 03/31/18 15:14 APTT 31 SECONDS (21-34) 03/31/18 15:14
[2018-04-06 07:52] VITALS: TEMP 97.7; O2SAT 95
[2018-04-06 14:19] VITALS: BP 155/86; PULSE 66
--- NOTE | 2018-04-06 18:36 | PN ---
DATE: 04/06/2018 SUBJECTIVE: The patient denies chest pain or shortness of breath or groin bleeding. PHYSICAL EXAMINATION: VITAL SIGNS: Blood pressure 155/86, heart rate 66, temperature 97.7, respirations 20. HEENT: Normocephalic. NECK: No JVD. CHEST: Clear. HEART: S1 and S2, regular. EXTREMITIES: No edema and no groin hematoma. LABORATORY DATA: There are no lab work for today. ASSESSMENT: 1. 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 2. Hypertension. 3. Hypothyroidism. 4. History of seizure disorder. RECOMMENDATIONS: The patient can be discharged from the cardiac point on aspirin 81 mg once a day, Plavix 75 mg once a day, Crestor 10 mg once a day, Cozaar 25 mg once a day, and Synthroid 25 mcg once a day. Ashu Tong MD
--- NOTE | 2018-04-06 23:50 | CP.PCM.DIS ---
Provider - Provider Date of Admission: 04/02/18 15:37 Attending physician: Israel Mesa MD Time Spent in preparation of Discharge (in minutes): 45 Hospital Course - Lab Results Lab Results: Most Recent Lab Values WBC 6.0 K/uL (4.8-10.8) 04/05/18 08:32 RBC 4.29 Mil/uL (4.40-5.90) L 04/05/18 08:32 Hgb 13.6 g/dL (12.0-18.0) 04/05/18 08:32 Hct 39.8 % (35.0-51.0) 04/05/18 08:32 MCV 92.7 fL (80.0-94.0) 04/05/18 08:32 MCH 31.7 pg (27.0-31.0) H 04/05/18 08:32 MCHC 34.2 g/dL (33.0-37.0) 04/05/18 08:32 RDW 14.0 % (11.5-14.5) 04/05/18 08:32 Plt Count 145 K/uL (130-400) 04/05/18 08:32 MPV 9.7 fL (7.2-11.7) 04/05/18 08:32 Neut % (Auto) 67.1 % (50.0-75.0) 04/05/18 08:32 Lymph % (Auto) 17.2 % (20.0-40.0) L 04/05/18 08:32 [place] % (Auto) 11.9 % (0.0-10.0) H 04/05/18 08:32 Eos % (Auto) 3.3 % (0.0-4.0) 04/05/18 08:32 Baso % (Auto) 0.5 % (0.0-2.0) 04/05/18 08:32 Neut # (Auto) 4.0 K/uL (1.8-7.0) 04/05/18 08:32 Lymph # (Auto) 1.0 K/uL (1.0-4.3) 04/05/18 08:32 [place] # (Auto) 0.7 K/uL (0.0-0.8) 04/05/18 08:32 Eos # (Auto) 0.2 K/uL (0.0-0.7) 04/05/18 08:32 Baso # (Auto) 0.0 K/uL (0.0-0.2) 04/05/18 08:32 PT 12.2 SECONDS (9.7-12.2) 03/31/18 15:14 INR 1.1 03/31/18 15:14 APTT 31 SECONDS (21-34) 03/31/18 15:14 Sodium 137 mmol/L (132-148) 04/05/18 08:32 Potassium 4.3 mmol/L (3.6-5.2) 04/05/18 08:32 Chloride 103 mmol/L (98-107) 04/05/18 08:32 Carbon Dioxide 26 mmol/L (22-30) 04/05/18 08:32 Anion Gap 12 (10-20) 04/05/18 08:32 BUN 13 mg/dL (9-20) 04/05/18 08:32 Creatinine 0.7 mg/dL (0.8-1.5) L 04/05/18 08:32 Est GFR ( Amer) > 60 04/05/18 08:32 Est GFR (Non-Af Amer) > 60 04/05/18 08:32 Random Glucose 98 mg/dL (75-110) 04/05/18 08:32 Calcium 8.9 mg/dl (8.6-10.4) 04/05/18 08:32 Total Bilirubin 0.5 mg/dL (0.2-1.3) 04/05/18 08:32 AST 26 U/L (17-59) 04/05/18 08:32 ALT 45 U/L (21-72) 04/05/18 08:32 Alkaline Phosphatase 64 U/L (38-126) 04/05/18 08:32 Total Creatine Kinase 59 U/L (55-170) 03/31/18 17:38 CK-MB (Mass) 2.00 ng/mL (0.0-3.38) 03/31/18 17:38 Troponin I < 0.0120 ng/mL (0.00-0.120) 04/01/18 08:58 Total Protein 6.4 g/dL (6.3-8.3) 04/05/18 08:32 Albumin 3.6 g/dL (3.5-5.0) 04/05/18 08:32 Globulin 2.8 gm/dL (2.2-3.9) 04/05/18 08:32 Albumin/Globulin Ratio 1.3 (1.0-2.1) 04/05/18 08:32 TSH 3rd Generation 3.13 mIU/L (0.46-4.68) 04/01/18 08:58 - Hospital Course Hospital Course: Pt seen and examined, is stable for discharge Discharge Plan - Discharge Medications Prescriptions: Losartan [Cozaar] 25 mg PO DAILY #30 tab Rosuvastatin Calcium [Crestor] 10 mg PO HS #30 tab Famotidine [Pepcid] 40 mg PO DAILY #30 tab - Follow Up Plan Condition: STABLE Disposition: HOME/ ROUTINE Instructions: Heart Healthy Diet, DASH Diet, High Blood Pressure (DC), Cardiac Catheterization (DC), Chest Pain (DC), Famotidine, Losartan, Rosuvastatin Additional Instructions: follow up with PMD in 1 week home care/ home PT for unsteady gait Referrals: Ashu Tong MD [Staff Provider] - Israel Mesa MD [Staff Provider] -
== END 2018-04-06 14:49 | disposition home or self-care (01) | DRG 287 ==
LOC: C.ER 14:33 → C.9E 15:58 → OBSVTOIN 15:59 → INTOOBSV 15:59 → C.5S 21:19 → OBSVTOIN 04-02 15:37 → C.5S 04-05 10:04
PROVIDERS: ADMIT Internal Medicine; ATTEND Internal Medicine
PROC: 4A023N8 Measurement of Cardiac Sampling and Pressure, Bilateral, Percutaneous Approach (ICD-10-PCS; principal; 2018-04-03)
PROC: B211YZZ Fluoroscopy of Multiple Coronary Arteries using Other Contrast (ICD-10-PCS; 2018-04-03)
PROC: B215YZZ Fluoroscopy of Left Heart using Other Contrast (ICD-10-PCS; 2018-04-03)
DX: I25.10 Atherosclerotic heart disease of native coronary artery without angina pectoris (principal); I10 Essential (primary) hypertension; E03.9 Hypothyroidism, unspecified; G40.909 Epilepsy, unspecified, not intractable, without status epilepticus; E78.00 Pure hypercholesterolemia, unspecified; Z79.82 Long term (current) use of aspirin; Z79.899 Other long term (current) drug therapy

== ENCOUNTER 2018-05-25 07:56 | Inpatient (IN) | payer MEDICARE ==
[2018-05-25 07:56] VITALS: BMI 22.9
[2018-05-25 08:50] LABS: BASO % 0.5 % (0.0-2.0); EOS # 0.1 K/uL (0.0-0.7); EOS % 1.6 % (0.0-4.0); HEMOGLOBIN 13.4 g/dL (12.0-18.0); LYMPH # 0.8 K/uL (1.0-4.3); MEAN CORPUSCULAR HGB CONC 34.4 g/dL (33.0-37.0); MEAN PLATELET VOLUME 8.4 fL (7.2-11.7); MONO # 0.7 K/uL (0.0-0.8); MONO % 11.9 % (0.0-10.0); RBC 4.31 Mil/uL (4.40-5.90); WHITE BLOOD COUNT 5.5 K/uL (4.8-10.8)
[2018-05-25 08:52] LABS: MEAN CELL VOLUME 90.3 fL (80.0-94.0)
[2018-05-25 09:08] LABS: ALB/GLOB RATIO 1.6 (1.0-2.1); ALBUMIN 4.2 g/dL (3.5-5.0); ALT/SGPT 25 U/L (21-72); AST/SGOT 24 U/L (17-59); BLOOD UREA NITROGEN 8 mg/dL (9-20); CALCIUM 9.3 mg/dl (8.6-10.4); GFR NON-AFRICAN AMERICAN > 60
--- NOTE | 2018-05-25 09:12 | RAD ---
Date of service: 05/25/2018 PROCEDURE: CHEST RADIOGRAPH, 1 VIEW HISTORY: SOB COMPARISON: 03/31/2018 FINDINGS: LUNGS: Clear. PLEURA: No pneumothorax or pleural fluid seen. CARDIOVASCULAR: Normal. OSSEOUS STRUCTURES: No significant abnormalities. VISUALIZED UPPER ABDOMEN: Normal. OTHER FINDINGS: None. IMPRESSION: No active disease.
--- NOTE | 2018-05-25 09:13 | C.PDOC ---
History Of Present Illness 73-year-old male, presents to the emergency department with complaints of feeling weak, dizzy and nausea for the past 2-3 weeks. Pt states symptoms worsened this morning, associated with right lower abdominal pain. Denies vomiting, fever, chills. Time Seen by Provider: 05/25/18 07:59 Chief Complaint (Nursing): Abdominal Pain History Per: Patient History/Exam Limitations: no limitations Past Medical History Reviewed: Historical Data, Nursing Documentation, Vital Signs Vital Signs: Last Vital Signs Temp 98.3 F 05/25/18 13:13 Pulse 63 05/25/18 13:13 Resp 16 05/25/18 13:13 BP 141/91 H 05/25/18 13:13 Pulse Ox 98 05/25/18 13:13 - Medical History PMH: HTN, Hypercholesterolemia, Seizures Denies: Chronic Kidney Disease - [facility] Procedures ESOPHAGOGASTRODUODENOSCOPY [EGD] W/CLOSED BIOPSY (04/04/04) FLUOROSCOPY OF LEFT HEART USING OTHER CONTRAST (04/02/18) FLUOROSCOPY OF MULTIPLE CORONARY ARTERIES USING OTH CONTRAST (04/02/18) MEASURE CARDIAC SAMPL & PRESSURE, BILATERAL, PERC (04/02/18) Family History: States: No Known Family Hx - Social History Hx Alcohol Use: No Hx Substance Use: No - Immunization History Hx Tetanus Toxoid Vaccination: No Review Of Systems Constitutional: Positive for: Weakness. Negative for: Fever, Chills Respiratory: Negative for: Shortness of Breath Gastrointestinal: Positive for: Nausea, Abdominal Pain. Negative for: Vomiting Musculoskeletal: Negative for: Back Pain Skin: Negative for: Rash Neurological: Positive for: Dizziness. Negative for: Weakness, Numbness, Headache Physical Exam - Physical Exam Appears: Non-toxic, No Acute Distress Skin: Normal Color, Warm, Dry, No Rash Head: Atraumatic, Normacephalic Eye(s): bilateral: Normal Inspection, PERRL, EOMI Nose: Normal Oral Mucosa: Moist Lips: Normal Appearing Neck: Normal ROM Cardiovascular: Rhythm Regular, No Murmur Respiratory: Normal Breath Sounds, No Accessory Muscle Use Gastrointestinal/Abdominal: Soft, Tenderness (right lower) Back: Normal Inspection Extremity: Normal ROM, No Deformity Neurological/Psych: Oriented x3, Normal Speech ED Course And Treatment - Laboratory Results Result Diagrams: 05/25/18 08:46 05/25/18 08:46 ECG: Interpreted By Me, Viewed By Me ECG Rhythm: Sinus Rhythm ECG Interpretation: No Acute Changes Rate From EC O2 Sat by Pulse Oximetry: 96 (RA) Pulse Ox Interpretation: Normal Medical Decision Making Medical Decision Making: Plan: * CT Abd/pel * EKG * Bloodwork * Chest X-Ray * UA * Reassess and Disposition * * 1318 - patient still complaining of ongoing weakness and fatigue * will admit to med surg s/o Dr. Terra Mesa, observation Disposition Discussed With : Israel Mesa Counseled Patient/Family Regarding: Studies Performed, Diagnosis - Disposition Disposition: HOSPITALIZED Disposition Time: 13:19 Condition: FAIR Instructions: Weakness (ED) Forms: [facility] (Greenlandic) - Clinical Impression Clinical Impression: Weakness, Abdominal pain - Scribe Statement The provider has reviewed the documentation as recorded by the Scribe (Arun Wakefield) All medical record entries made by the Scribe were at my direction and personally dictated by me. I have reviewed the chart and agree that the record accurately reflects my personal performance of the history, physical exam, medical decision making, and the department course for this patient. I have also personally directed, reviewed, and agree with the discharge instructions and disposition.
[2018-05-25 09:16] LABS: B-TYPE NATRIURETIC PEPTIDE 137 pg/mL (0-900)
[2018-05-25] MEDS ORDERED: Iodixanol 320 MG/ML 100 ML BOTTLE IV ONE (09:31)
--- NOTE | 2018-05-25 10:55 | CT ---
Date of service: 05/25/2018 PROCEDURE: CT Abdomen and Pelvis with contrast HISTORY: abd. pain COMPARISON: None. TECHNIQUE: Contrast dose: 100 mL Visipaque 320 Radiation dose: Total exam DLP = 589.5 mGy-cm. This CT exam was performed using one or more of the following dose reduction techniques: Automated exposure control, adjustment of the mA and/or kV according to patient size, and/or use of iterative reconstruction technique. FINDINGS: LOWER THORAX: Cardiomegaly. Right lower lobe blebs. No focal consolidation or pleural effusion. LIVER: Unremarkable. No gross lesion or ductal dilatation. GALLBLADDER AND BILE DUCTS: Unremarkable. PANCREAS: Fatty replacement. No gross lesion or ductal dilatation. SPLEEN: Unremarkable. ADRENALS: Unremarkable. No mass. KIDNEYS AND URETERS: Unremarkable. No hydronephrosis. No solid mass. VASCULATURE: Calcific atherosclerosis. No aortic aneurysm. BOWEL: Small hiatal hernia. Prominent amount of retained colonic stool No obstruction. No gross mural thickening. APPENDIX: Normal appendix. PERITONEUM: Fat containing bilateral inguinal hernias. No free fluid. No free air. LYMPH NODES: Unremarkable. No enlarged lymph nodes. BLADDER: Unremarkable. REPRODUCTIVE: Unremarkable. BONES: No acute fracture. Degenerative changes. OTHER FINDINGS: None. IMPRESSION: Constipation.
[2018-05-25 14:16] LABS: URINE BILIRUBIN NEGATIVE (NEGATIVE); URINE BLOOD NEGATIVE (NEGATIVE); URINE CLARITY Clear (Clear); URINE COLOR Yellow (YELLOW); URINE GLUCOSE (UA) NORMAL (Normal); URINE LEUKOCYTE ESTERASE NEG Leu/uL (Negative); URINE PROTEIN NEGATIVE (NEGATIVE); URINE UROBILINOGEN NORMAL mg/dL (0.2-1.0)
[2018-05-25] MEDS: Nystatin 100,000 Units/ml Oral Susp 5 ml UD PO SCH ×2 (17:53→21:51)
[2018-05-25] MEDS: Magnesium Citrate Oral SOL (300 ml) PO SCH (19:51)
[2018-05-25] MEDS: Sucralfate 1 gm/10 ml Oral Susp UD PO SCH (21:51)
[2018-05-26] MEDS: Levothyroxine 50 MCG TAB PO SCH (05:20)
[2018-05-26] MEDS: Sucralfate 1 gm/10 ml Oral Susp UD PO SCH ×2 (08:00→21:40)
[2018-05-26] MEDS: Nystatin 100,000 Units/ml Oral Susp 5 ml UD PO SCH ×4 (10:15→21:40)
[2018-05-26] MEDS: Enoxaparin 40 mg Syringe SC SCH (10:15)
--- NOTE | 2018-05-26 13:25 | PN ---
Copied To: Elizabeth Stover MD Attending MD: Elizabeth Stover MD DATE: 05/26/2018 LOCATION: 371, bed A. SUBJECTIVE: This is a 73-year-old male seen and examined in rounds, as initially he was seen for GI consultation on 05/25/2018 as requested by the admitting MD with a complaint again of dyspepsia and dysphagia on and off associated with recurrent bowel movement since yesterday after several days of being constipated, but no reported active bleeding, chest pain, palpitation or chills or fever. Today's lab results still pending; however, yesterday lab results showed normal CBC with increased blood glucose level as well as increased TSH. Abdominal and pelvic CAT scan done yesterday, official report is seen indicative of constipation. Cancer marker is still pending. PHYSICAL EXAMINATION: GENERAL: A 73-year-old male. VITAL SIGNS: Afebrile with pulse of 62, respiratory rate 20 to 22, blood pressure 110/64. HEENT: Showed dry, oral mucous membrane. Nonicteric sclerae. LUNGS: Few scattered crepitation. Decreased air entry at bases. HEART: Positive S1 and S2. ABDOMEN: Soft with mild generalized tenderness. No mass or organomegaly. No rebound tenderness or guarding. EXTREMITIES: Without significant clubbing, cyanosis or edema. NEUROLOGIC: No reported new neurological deficits, sensory or motor. IMPRESSION: 1. Dysphagia, to rule out esophageal mass lesion versus esophagitis with possible esophageal candidiasis. 2. Known history of but not limited to hyperlipidemia, hypertension with seizure disorder. 3. Peptic ulcer disease, by history. Last upper endoscopy done in 03/2004. SUGGESTIONS: 1. Agree with your plan. 2. Endoscopic evaluation of the upper GI tract after full evaluation by the neurology advanced manufacturing consultant. 3. Carafate liquid p.o. 4. Follow up in cancer markers. Elizabeth Stover MD
[2018-05-26 17:35] LABS: INR 1.1; PROTHROMBIN TIME 12.4 SECONDS (9.7-12.2)
[2018-05-26] MEDS: Magnesium Citrate Oral SOL (300 ml) PO SCH (19:55)
--- NOTE | 2018-05-26 22:05 | HP ---
Copied To: Ashu Tong MD Attending MD: Ashu Tong MD HISTORY OF PRESENT ILLNESS: The patient is a 73-year-old male who was admitted yesterday because of dizziness and weakness as well as nausea for the past two to three weeks. The patient reports right lower abdominal pain but denies any fever or chills. The patient underwent cardiac catheterization in the past which revealed 50% to 60% proximal LAD stenosis and recommendation at that time was to continue medical therapy. The patient denies any chest pain at this time. The date of the cardiac catheterization is 04/03/2018. MEDICATIONS: Carafate 1 g twice a day, magnesium citrate 120 mg once a day, Cozaar 25 mg once a day, Crestor 10 mg once a day, Dilantin 100 mg t.i.d., aspirin 81 mg once a day, Lovenox 40 mg subcutaneously once a day, nystatin oral suspension 5 mL four times daily, Protonix 40 mg intravenously once a day, Synthroid 50 mcg once a day, Tylenol 650 mg every 6 hours. PHYSICAL EXAMINATION: GENERAL: The patient is an elderly male who does not appear to be in any acute distress. VITAL SIGNS: Blood pressure 105/62, heart rate 60, temperature 98.3, respiration 20. HEENT: Normocephalic. CHEST: Clear. HEART: S1 and S2 are regular. EXTREMITIES: No edema. LABORATORY DATA: SMA-7: Sodium 133, potassium 3.8, chloride 96, CO2 of 27, glucose 115, BUN 8, creatinine 0.6. One set of troponin is negative. TSH level is elevated at 15.7. Hemoglobin, hematocrit, white cell count and platelet count are within normal limits. EKG revealed normal sinus rhythm. ASSESSMENT: 1. Abdominal pain and nausea. 2. 50% to 60% left anterior descending artery stenosis. 3. Hypothyroidism. RECOMMENDATIONS: I did review the abdomen and pelvis CT scan with IV contrast only which was consistent with constipation. I will continue current Synthroid, prophylaxis subcutaneous Lovenox, aspirin, Dilantin, Crestor, Cozaar, and Carafate and follow up with the GI recommendations. Ashu Tong MD
--- NOTE | 2018-05-27 04:35 | CON ---
Copied To: Elizabeth Stover MD Attending MD: Elizabeth Stover MD DATE: 05/25/[address] Stover to Dr. Israel Mesa. I was called for GI consultation by the admitting MD. The patient is seen and fully examined on 05/25/2018 as requested by the admitting medical staff. The entire chart is reviewed including but not limited to most recent lab and radiology study results, current and the previous medication lists, current and the previous medical events, allergic to medication list as well as all the available current and previous medical records. HISTORY OF PRESENT ILLNESS: This is a 73-year-old male who was admitted to the hospital through the emergency room with the main complaints of generalized weakness, malaise, fatigue, dizziness, persistent nausea, dyspepsia for the last three weeks with persistent midepigastric and right lower abdominal pain with mild loss of body weight. PAST MEDICAL HISTORY: Including but not limited to hyperlipidemia, hypertension, seizure disorder. The patient denies any recent history of chest pain, palpitation, significant shortness of breath, chills, or fever. FAMILY HISTORY: Unknown. ALLERGIES TO MEDICATIONS: UNCLEAR. CURRENT MEDICATIONS: Post-admission medication list reviewed. SOCIAL HISTORY: No known recent history of cigarette smoking or alcohol intake. LABORATORY DATA: After being admitted to the hospital, the patient's initial blood workup showed normal CBC with low BUN, low creatinine with increased blood glucose level of 215. PHYSICAL EXAMINATION: GENERAL: A 73-year-old male. VITAL SIGNS: Afebrile with pulse of 66, respiratory rate 18 to 20, and blood pressure of 138/84. HEENT: Showed dry oral mucous membrane. Nonicteric sclerae. LUNGS: Few scattered crepitation. Decreased air entry at bases. LYMPH NODES: No lymphadenitis or lymphadenopathy. HEART: Positive S1 and S2. ABDOMEN: Soft with generalized tenderness but mainly in the mid epigastric and right lower quadrant areas. No mass or organomegaly. No rebound tenderness or guarding. The patient expressed episodes of nausea during my physical examination. RECTAL EXAMINATION: The patient refused. EXTREMITIES: Without significant edema, clubbing or cyanosis. NEUROLOGIC: No reported new neurological deficits, sensory or motor. Peripheral pulses are present but weak bilaterally. IMPRESSION: 1. Re-exacerbation of peptic ulcer disease. 2. Diverticulosis with possible diverticulitis. 3. Rule out occult gastrointestinal malignancy. 4. Past medical history as mentioned above. SUGGESTIONS: 1. Agree with your plan. 2. Sectional abdominal and pelvic CAT scan. 3. Proton pump inhibitors IV. 4. Cancer markers. 5. Guaiac positive stool daily x3. 6. Endoscopic evaluation of the GI tract when the patient is more stable clinically. 7. Further recommendation to follow. Thank you for letting me participate in your patient's case management. Elizabeth Stover MD
[2018-05-27] MEDS: Levothyroxine 50 MCG TAB PO SCH (05:41)
[2018-05-27] MEDS: Sucralfate 1 gm/10 ml Oral Susp UD PO SCH ×2 (07:33→21:24)
[2018-05-27] MEDS: Nystatin 100,000 Units/ml Oral Susp 5 ml UD PO SCH ×4 (10:02→21:24)
[2018-05-27] MEDS: Enoxaparin 40 mg Syringe SC SCH (10:04)
[2018-05-27] MEDS: Magnesium Citrate Oral SOL (300 ml) PO SCH (18:11)
--- NOTE | 2018-05-27 21:05 | PN ---
Copied To: Elizabeth Stover MD Attending MD: Elizabeth Stover MD DATE: 05/27/2018 LOCATION: 350, bed A. SUBJECTIVE: This is a 73-year-old male seen and examined in rounds early today with reported episodes of watery bowel movement, appeared to be somewhat more awake with period of mild disorientation but no reported chest pain, palpitation, shortness of breath, chills, or fever. The entire chart is reviewed including but not limited to the most recent lab and radiology study results, current and the previous medication list, current and the previous medical events. Today's lab is still pending; however, the patient reported to have elevated CEA 7, CA 19-9 elevated to 62.8 raising the question of possible GI neoplasm. PHYSICAL EXAMINATION: GENERAL: A 73-year-old male. VITAL SIGNS: Afebrile with pulse of 64, respiratory 20-22 blood pressure 102/64. HEENT: Showed pale dry oral mucous membrane. Nonicteric sclerae. LUNGS: Few scattered crepitation. Decreased air entry at bases. HEART: Positive S1 and S2. ABDOMEN: Soft with mild generalized tenderness. No mass or organomegaly. No rebound tenderness or guarding. EXTREMITIES: Without significant clubbing, cyanosis or edema. NEUROLOGIC: No reported new neurological deficits. Peripheral pulses are present bilaterally. IMPRESSION: 1. Re-exacerbation of peptic ulcer disease. 2. Diverticulosis with possible early stage of diverticulitis. 3. Rule out occult gastrointestinal malignancy. 4. Rule out possible gastrointestinal blood loss. SUGGESTIONS: 1. Agree with your plan. 2. Endoscopic evaluation of the GI tract when the patient is more stable clinically. 3. Guaiac all the stools daily x3. 4. Further recommendation to follow. Elizabeth Stover MD
--- NOTE | 2018-05-27 23:45 | PN ---
Copied To: Ashu Tong MD Attending MD: Ashu Tong MD DATE: 05/27/2018 SUBJECTIVE: The patient is complaining of sore throat and difficulty swallowing. The patient was evaluated by Dr. Stover, and the impression was the exacerbation of peptic ulcer disease, diverticulosis with possible diverticulitis. Rule out occult gastrointestinal malignancy. He recommended sectional abdominal and pelvic CT scan with initiating proton pump inhibitor and obtaining cancer markers. The patient denies any chest pain. He has sore throat with difficulty swallowing. PHYSICAL EXAMINATION: VITAL SIGNS: Blood pressure 103/68, heart rate 62, temperature 98, respirations 20. HEENT: Normocephalic. CHEST: Clear. HEART: S1 and S2 are regular. EXTREMITIES: No edema. LABORATORY DATA: CA 19-9 antigen is elevated at 62.8. Carcinoembryonic antigen is elevated at 7. ASSESSMENT: 1. Abdominal pain. 2. Rule out gastrointestinal malignancy. 3. Hypothyroidism. 4. Nonocclusive coronary artery disease. PLAN: Continue Carafate 1 g twice a day, magnesium citrate 120 mg once a day, Colace 100 mg twice a day, Cozaar 25 mg once a day, Crestor 10 mg once a day, nystatin oral solution four times a day, aspirin 81 mg once a day, Dilantin 100 mg t.i.d., Synthroid 50 mcg daily, Protonix 40 mg p.o. once a day. I will obtain serum Dilantin level. Discussed the case with Dr. Stover, manager action. Ashu Tong MD
[2018-05-28] MEDS: Levothyroxine 50 MCG TAB PO SCH (05:32)
[2018-05-28] MEDS: Sucralfate 1 gm/10 ml Oral Susp UD PO SCH ×2 (08:18→21:26)
[2018-05-28] MEDS ORDERED: Pneumococcal 23-Valent Vaccine IM ONE (10:00)
[2018-05-28] MEDS: Nystatin 100,000 Units/ml Oral Susp 5 ml UD PO SCH ×4 (10:16→21:26)
[2018-05-28] MEDS: Pantoprazole 40 mg EC Tab PO SCH (10:16)
[2018-05-28] MEDS: Enoxaparin 40 mg Syringe SC SCH (10:17)
--- NOTE | 2018-05-28 16:37 | PN ---
Copied To: Ashu Tong MD Attending MD: Ashu Tong MD DATE: 05/28/2018 SUBJECTIVE: The patient is still bothered by his difficulty swallowing and irritated throat. He is reporting diarrhea on and off. OBJECTIVE: VITAL SIGNS: Blood pressure 103/82, heart rate 67, temperature 97.9, respirations 20. HEENT: Head normocephalic. CHEST: Clear. HEART: S1 and S2 regular. EXTREMITIES: No edema. ASSESSMENT: 1. Abdominal pain. 2. Rule out gastrointestinal malignancy. 3. Hypothyroidism. 4. Nonobstructive coronary artery disease. RECOMMENDATIONS: Continue Carafate 1 g twice a day, magnesium citrate 120 mg daily, Colace 100 mg twice a day, Cozaar 25 mg once a day, Dilantin 100 mg t.i.d., Crestor 10 mg once a day, aspirin 81 mg once a day, Synthroid 50 mcg once a day, and Protonix 40 mg once a day. Ashu Tong MD
[2018-05-28] MEDS: Magnesium Citrate Oral SOL (300 ml) PO SCH (19:12)
[2018-05-29] MEDS: Levothyroxine 50 MCG TAB PO SCH (05:42)
[2018-05-29] MEDS: Sucralfate 1 gm/10 ml Oral Susp UD PO SCH ×2 (08:04→21:42)
[2018-05-29] MEDS: Pantoprazole 40 mg EC Tab PO SCH (10:04)
[2018-05-29] MEDS: Nystatin 100,000 Units/ml Oral Susp 5 ml UD PO SCH ×4 (10:04→21:42)
[2018-05-29] MEDS: Enoxaparin 40 mg Syringe SC SCH (10:04)
[2018-05-29 11:26] LABS: BASO % 0.6 % (0.0-2.0); EOS # 0.3 K/uL (0.0-0.7); HEMOGLOBIN 12.6 g/dL (12.0-18.0); LYMPH % 18.3 % (20.0-40.0); MEAN CELL VOLUME 91.5 fL (80.0-94.0); MEAN CORPUSCULAR HEMOGLOBIN 31.4 pg (27.0-31.0); MEAN CORPUSCULAR HGB CONC 34.3 g/dL (33.0-37.0); MEAN PLATELET VOLUME 9.2 fL (7.2-11.7); MONO # 0.9 K/uL (0.0-0.8); MONO % 16.4 % (0.0-10.0); NEUT # 3.1 K/uL (1.8-7.0); NEUT % 59.7 % (50.0-75.0); RED CELL DISTRIBUTION WIDTH 13.9 % (11.5-14.5); WHITE BLOOD COUNT 5.2 K/uL (4.8-10.8)
[2018-05-29 11:39] LABS: BLOOD UREA NITROGEN 19 mg/dL (9-20); CALCIUM 8.9 mg/dl (8.6-10.4); GFR NON-AFRICAN AMERICAN > 60
--- NOTE | 2018-05-29 15:27 | PN ---
Copied To: Elizabeth Stover MD Attending MD: Elizabeth Stover MD DATE: 05/29/2018 LOCATION: 350, bed A. SUBJECTIVE: This is a 73-year-old male seen and examined in rounds with reported difficulty of esophageal swallow as also by the speech therapist today. No reported chest pain, palpitation, or significant shortness of breath. The patient denied any chills or fever, but again dysphagia with dyspepsia, and intermittent period of change of bowel movement. Most recent lab results today still pending; however, the patient is still having elevated CEA and CA 19-9. PHYSICAL EXAMINATION: GENERAL: A 73-year-old male. VITAL SIGNS: Afebrile with pulse of 64, respiratory rate 20 to 22, and blood pressure 122/72. HEENT: Showed pale, dry oral mucous membrane. Nonicteric sclerae. LUNGS: Few scattered crepitation. Decreased air entry at bases. HEART: Positive S1 and S2. ABDOMEN: Soft with slight generalized tenderness. No mass or organomegaly. No rebound tenderness or guarding. EXTREMITIES: Without significant edema, clubbing, or cyanosis. NEUROLOGICAL: No reported neurological deficits, sensory, or motor. IMPRESSION: 1. Peptic ulcer disease. 2. Dyspepsia with dysphagia. 3. Diverticulosis with early stage of slight diverticulitis. 4. To rule out occult gastrointestinal malignancy. 5. Malnutrition, hypoalbuminemia, and . 6. Abnormal carcinoembryonic antigen and CA19-9 raising the possibility of pancreatic versus colon carcinoma. SUGGESTION: 1. Continue current management. 2. We will schedule the patient for upper endoscopy tomorrow when he is more stable clinically. 3. Further recommendations to follow. Elizabeth Stover MD
[2018-05-29] MEDS: Magnesium Citrate Oral SOL (300 ml) PO SCH (18:02)
--- NOTE | 2018-05-29 21:29 | CP.PCM.PN ---
Objective - Vital Signs/Intake and Output Vital Signs (last 24 hours): Temp Pulse Resp BP Pulse Ox 98.1 F 62 20 99/61 L 95 05/29/18 15:00 05/29/18 15:00 05/29/18 15:00 05/29/18 15:00 05/29/18 15:00 Intake and Output: 05/29/18 05/30/18 18:59 06:59 Intake Total 880 Balance 880 - Medications Medications: Current Medications Acetaminophen (Tylenol 325mg Tab) 650 mg PO Q6 PRN PRN Reason: Pain, moderate (4-7) Aspirin (Ecotrin) 81 mg PO DAILY [facility] Last Admin: 05/29/18 10:04 Dose: 81 mg Docusate Sodium (Colace) 100 mg PO BID [facility] Last Admin: 05/29/18 17:52 Dose: 100 mg Enoxaparin Sodium (Lovenox) 40 mg SC DAILY [facility] Last Admin: 05/29/18 10:04 Dose: 40 mg Levothyroxine Sodium (Synthroid) 50 mcg PO 0600 [facility] Last Admin: 05/29/18 05:42 Dose: 50 mcg Losartan Potassium (Cozaar) 25 mg PO DAILY [facility] Last Admin: 05/29/18 10:04 Dose: 25 mg Magnesium Citrate (Citrate Of Mag) 120 ml PO Q24H [facility] Last Admin: 05/29/18 18:02 Dose: 120 ml Nystatin (Nystatin Oral Susp) 5 ml PO QID [facility] Last Admin: 05/29/18 17:58 Dose: 5 ml Pantoprazole Sodium (Protonix Ec Tab) 40 mg PO DAILY [facility] Last Admin: 05/29/18 10:04 Dose: 40 mg Phenytoin Sodium (Dilantin) 100 mg PO TID [facility] Last Admin: 05/29/18 17:52 Dose: 100 mg Rosuvastatin Calcium (Crestor) 10 mg PO HS [facility] Last Admin: 05/28/18 21:26 Dose: 10 mg Sucralfate (Carafate Oral Susp) 1 gm PO ACBHS [facility] Last Admin: 05/29/18 08:04 Dose: 1 gm - Labs Labs: 05/29/18 11:17 05/29/18 11:17 PT 12.4 SECONDS (9.7-12.2) H 05/26/18 17:23 INR 1.1 05/26/18 17:23 APTT 31 SECONDS (21-34) 05/26/18 17:23
--- NOTE | 2018-05-29 22:31 | CARD ---
APPROVED REPORT Date of service: 05/25/2018 EKG Measurement Heart [id number] <Conclusion> Normal sinus rhythm Normal ECG
--- NOTE | 2018-05-30 04:48 | OP ---
Copied To: Chao Herndon MD Attending MD: Chao Herndon MD PROCEDURE DATE: 05/29/2018 PREOPERATIVE DIAGNOSIS: Dysphagia. POSTOPERATIVE DIAGNOSIS: Dysphagia. PROCEDURE: Flexible laryngoscopy. SIGNIFICANT FINDINGS: Mild supraglottic erythema. DESCRIPTION OF PROCEDURE: The patient was placed in a seated position. Flexible laryngoscope was inserted into the nasal cavity; passed through the nasopharynx, oropharynx, and hypopharynx. The pharyngeal schmitz, base of tongue, vallecula, epiglottis, AE folds, false cords, true cords, arytenoids, piriform sinuses were brought into view. Mild supraglottic erythema was noted and the scope was removed. The patient tolerated the procedure well. As the patient is assessed as having possibly supraglottitis, we will recommend IV antibiotics; however, the patient's pain is more in the cervical esophagus and lower in the neck rather than above the cricoid. Therefore, I would recommend a GI consult for the patient to have upper endoscopy done in order to evaluate the esophagus better. Chao Herndon MD FERNANDO
[2018-05-30] MEDS: Levothyroxine 50 MCG TAB PO SCH (05:52)
--- NOTE | 2018-05-30 06:40 | PN ---
Copied To: Israel Mesa MD Attending MD: Israel Mesa MD DATE: 05/29/2018 SUBJECTIVE: The patient is complaining of some dysphagia. He was seen by ear, nose, and throat doctor and no particular findings were noted. The patient has high CA 19-9, he has high CEA, and he is for EGD. PHYSICAL EXAMINATION: VITAL SIGNS: He is afebrile. BP 99/61, pulse 62, respiratory rate 20, temperature 98.1. LUNGS: Clear. CARDIOVASCULAR SYSTEM: S1 and S2, regular. ABDOMEN: Soft. ASSESSMENT: 1. Dysphagia. 2. Dehydration. 3. Hypertension. PLAN: Continue current medications. EGD in a.m. Status post ENT consult. Israel Mesa MD
[2018-05-30] MEDS ORDERED: Lactated Ringer's 500 ML IV ONE ×2 (07:55)
[2018-05-30] MEDS ORDERED: Propofol 10 mg/ml Inj (20 ML) ONE (07:55)
[2018-05-30] MEDS ORDERED: Lactated Ringer's 500 ML IV SCH (08:00)
[2018-05-30] MEDS: Sucralfate 1 gm/10 ml Oral Susp UD PO SCH ×2 (08:21→21:29)
[2018-05-30] MEDS: Lactated Ringer's 1,000 ML IV SCH (09:49)
[2018-05-30] MEDS: Pantoprazole 40 mg EC Tab PO SCH (09:52)
[2018-05-30] MEDS: Enoxaparin 40 mg Syringe SC SCH (09:52)
[2018-05-30] MEDS ORDERED: Peg-Electrolyte Oral Soln 4L (Golytely) PO ONE (10:00)
[2018-05-30] MEDS: Nystatin 100,000 Units/ml Oral Susp 5 ml UD PO SCH ×4 (10:19→21:34)
[2018-05-30] MEDS ORDERED: Bisacodyl 5mg EC Tab PO ONE (17:00)
[2018-05-30] MEDS: Magnesium Citrate Oral SOL (300 ml) PO SCH (18:32)
--- NOTE | 2018-05-30 21:41 | CP.PCM.PN ---
Objective - Vital Signs/Intake and Output Vital Signs (last 24 hours): Temp Pulse Resp BP Pulse Ox 98 F 68 20 141/85 96 05/30/18 16:00 05/30/18 16:00 05/30/18 16:00 05/30/18 16:00 05/30/18 16:00 Intake and Output: 05/30/18 05/31/18 18:59 06:59 Intake Total 50 Balance 50 - Medications Medications: Current Medications Acetaminophen (Tylenol 325mg Tab) 650 mg PO Q6 PRN PRN Reason: Pain, moderate (4-7) Aspirin (Ecotrin) 81 mg PO DAILY [facility] Last Admin: 05/30/18 09:52 Dose: 81 mg Docusate Sodium (Colace) 100 mg PO BID [facility] Last Admin: 05/30/18 17:45 Dose: 100 mg Enoxaparin Sodium (Lovenox) 40 mg SC DAILY [facility] Last Admin: 05/30/18 09:52 Dose: 40 mg Fluconazole (Diflucan) 100 mg PO DAILY [facility] PRN Reason: Protocol Last Admin: 05/30/18 10:00 Dose: 100 mg Lactated Ringer's (Lactated Ringer's) 1,000 mls @ 75 mls/hr IV .[id number] [facility] Last Admin: 05/30/18 09:49 Dose: 75 mls/hr Ceftriaxone Sodium 1 gm/ (Sodium Chloride) 100 mls @ 100 mls/hr IVPB DAILY [facility] PRN Reason: Protocol Last Admin: 05/30/18 10:00 Dose: 100 mls/hr Levothyroxine Sodium (Synthroid) 50 mcg PO 0600 [facility] Last Admin: 05/30/18 05:52 Dose: 50 mcg Losartan Potassium (Cozaar) 25 mg PO DAILY [facility] Last Admin: 05/30/18 09:52 Dose: Not Given Magnesium Citrate (Citrate Of Mag) 120 ml PO Q24H [facility] Last Admin: 05/30/18 18:32 Dose: 120 ml Metoclopramide HCl (Reglan) 5 mg IVP Q6H [facility] Last Admin: 05/30/18 21:29 Dose: 5 mg Nystatin (Nystatin Oral Susp) 5 ml PO QID [facility] Last Admin: 05/30/18 21:34 Dose: 5 ml Pantoprazole Sodium (Protonix Ec Tab) 40 mg PO DAILY [facility] Last Admin: 05/30/18 09:52 Dose: 40 mg Phenytoin Sodium (Dilantin) 100 mg PO TID [facility] Last Admin: 05/30/18 17:45 Dose: 100 mg Rosuvastatin Calcium (Crestor) 10 mg PO HS [facility] Last Admin: 05/30/18 21:31 Dose: 10 mg Sucralfate (Carafate Oral Susp) 1 gm PO ACBHS [facility] Last Admin: 05/30/18 21:29 Dose: 1 gm - Labs Labs: 05/29/18 11:17 05/29/18 11:17 PT 12.4 SECONDS (9.7-12.2) H 05/26/18 17:23 INR 1.1 05/26/18 17:23 APTT 31 SECONDS (21-34) 05/26/18 17:23
[2018-05-31] MEDS: Lactated Ringer's 1,000 ML IV SCH ×3 (01:00→14:53)
--- NOTE | 2018-05-31 04:47 | PN ---
DATE: 05/30/2018 SUBJECTIVE: The patient is status post endoscopy, which showed some severe inflammation, but the patient did not have any obstructive lesion. No lesion. He still complains of problem with swallowing. I explained him he needs to carefully chew his foods, eat slowly because he had an evaluation done with ENT physician, and it was negative too. He is afebrile. PHYSICAL EXAMINATION VITAL SIGNS: BP 141/80, pulse 60, respiratory rate 20, and temperature 98. LUNGS: Clear. CARDIOVASCULAR SYSTEM: S1 and S2 are regular. ABDOMEN: Soft. ASSESSMENT: 1. Dysphagia, most likely dysfunctional. 2. Hypertension. 3. Dehydration. PLAN: Continue current medication. Monitor the patient. Israel Mesa MD
[2018-05-31] MEDS: Levothyroxine 50 MCG TAB PO SCH (06:20)
[2018-05-31] MEDS: Sucralfate 1 gm/10 ml Oral Susp UD PO SCH ×2 (06:35→21:32)
[2018-05-31] MEDS: Enoxaparin 40 mg Syringe SC SCH (10:22)
[2018-05-31] MEDS: Pantoprazole 40 mg EC Tab PO SCH (10:23)
[2018-05-31] MEDS: Nystatin 100,000 Units/ml Oral Susp 5 ml UD PO SCH ×4 (10:23→21:32)
[2018-05-31 11:26] LABS: BASO % 0.7 % (0.0-2.0); EOS # 0.2 K/uL (0.0-0.7); EOS % 3.9 % (0.0-4.0); LYMPH # 1.1 K/uL (1.0-4.3); LYMPH % 20.4 % (20.0-40.0); MEAN CELL VOLUME 92.4 fL (80.0-94.0); MEAN CORPUSCULAR HEMOGLOBIN 31.2 pg (27.0-31.0); MEAN CORPUSCULAR HGB CONC 33.8 g/dL (33.0-37.0); MEAN PLATELET VOLUME 9.1 fL (7.2-11.7); MONO # 0.7 K/uL (0.0-0.8); MONO % 12.6 % (0.0-10.0); NEUT # 3.4 K/uL (1.8-7.0); NEUT % 62.4 % (50.0-75.0); NRBC % 0.1 % (0.0-2.0); RBC 4.16 Mil/uL (4.40-5.90); RED CELL DISTRIBUTION WIDTH 14.4 % (11.5-14.5); WHITE BLOOD COUNT 5.4 K/uL (4.8-10.8)
[2018-05-31] MEDS ORDERED: Propofol 10 mg/ml Inj (20 ML) ONE (11:44)
[2018-05-31 11:47] LABS: BLOOD UREA NITROGEN 9 mg/dL (9-20); CALCIUM 9.1 mg/dl (8.6-10.4); GFR NON-AFRICAN AMERICAN > 60
--- NOTE | 2018-05-31 15:10 | CP.PCM.PN ---
Subjective - Date & Time of Evaluation Date of Evaluation: 05/31/18 Time of Evaluation: 11:25 - Subjective Subjective: Patient seen today denies any abdominal pain, N/V/, swallowing difficulty improved s/p colonoscopy today- no bleeding- internal and external hemerroids-( see full report for details ) Hgb - stable Objective - Vital Signs/Intake and Output Vital Signs (last 24 hours): Temp Pulse Resp BP Pulse Ox 98 F 50 L 12 100/67 99 05/31/18 12:12 05/31/18 12:42 05/31/18 12:42 05/31/18 12:42 05/31/18 12:42 Intake and Output: 05/31/18 05/31/18 06:59 18:59 Intake Total 4380 100 Balance 4380 100 - Medications Medications: Current Medications Acetaminophen (Tylenol 325mg Tab) 650 mg PO Q6 PRN PRN Reason: Pain, moderate (4-7) Aspirin (Ecotrin) 81 mg PO DAILY [facility] Last Admin: 05/31/18 10:22 Dose: Not Given Docusate Sodium (Colace) 100 mg PO BID [facility] Last Admin: 05/31/18 10:21 Dose: Not Given Enoxaparin Sodium (Lovenox) 40 mg SC DAILY [facility] Last Admin: 05/31/18 10:22 Dose: Not Given Fluconazole (Diflucan) 100 mg PO DAILY [facility] PRN Reason: Protocol Last Admin: 05/31/18 10:30 Dose: 100 mg Lactated Ringer's (Lactated Ringer's) 1,000 mls @ 75 mls/hr IV .[id number] [facility] Last Admin: 05/31/18 14:53 Dose: 75 mls/hr Ceftriaxone Sodium 1 gm/ (Sodium Chloride) 100 mls @ 100 mls/hr IVPB DAILY [facility] PRN Reason: Protocol Last Admin: 05/31/18 10:31 Dose: 100 mls/hr Levothyroxine Sodium (Synthroid) 50 mcg PO 0600 [facility] Last Admin: 05/31/18 06:20 Dose: 50 mcg Losartan Potassium (Cozaar) 25 mg PO DAILY [facility] Last Admin: 05/31/18 10:30 Dose: 25 mg Magnesium Citrate (Citrate Of Mag) 120 ml PO Q24H [facility] Last Admin: 05/30/18 18:32 Dose: 120 ml Metoclopramide HCl (Reglan) 5 mg IVP Q6H [facility] Last Admin: 05/31/18 14:52 Dose: 5 mg Nystatin (Nystatin Oral Susp) 5 ml PO QID [facility] Last Admin: 05/31/18 14:52 Dose: 5 ml Pantoprazole Sodium (Protonix Ec Tab) 40 mg PO DAILY [facility] Last Admin: 05/31/18 10:23 Dose: Not Given Phenytoin Sodium (Dilantin) 100 mg PO TID [facility] Last Admin: 05/31/18 14:52 Dose: 100 mg Rosuvastatin Calcium (Crestor) 10 mg PO HS [facility] Last Admin: 05/30/18 21:31 Dose: 10 mg Sucralfate (Carafate Oral Susp) 1 gm PO ACBHS [facility] Last Admin: 05/31/18 06:35 Dose: 1 gm - Labs Labs: 05/31/18 11:17 05/31/18 11:17 PT 12.4 SECONDS (9.7-12.2) H 05/26/18 17:23 INR 1.1 05/26/18 17:23 APTT 31 SECONDS (21-34) 05/26/18 17:23 Assessment and Plan - Assessment and Plan (Free Text) Assessment: A/P 73-year-old male, presents to the emergency department with complaints of feeling weak, dizzy and nausea for the past 2-3 weeks. and admitted with abdominal pain, weakness , N/V s/p EGD s/p colonoscopy - no active bleeding H pylori + d/w Dr. Mesa, cleared for discharge home otday and continue triple antibiotics therapy for H pyklori Discharge plan discussed with chante, who understands and agrees [facility]
[2018-05-31 16:31] VITALS: RESP 20
[2018-05-31] MEDS: Magnesium Citrate Oral SOL (300 ml) PO SCH (18:32)
--- NOTE | 2018-05-31 22:14 | CP.PCM.PN ---
Objective - Vital Signs/Intake and Output Vital Signs (last 24 hours): Temp Pulse Resp BP Pulse Ox 98.6 F 66 20 127/80 96 05/31/18 16:00 05/31/18 16:00 05/31/18 16:00 05/31/18 16:00 05/31/18 16:00 Intake and Output: 05/31/18 06/01/18 18:59 06:59 Intake Total 100 Balance 100 - Medications Medications: Current Medications Acetaminophen (Tylenol 325mg Tab) 650 mg PO Q6 PRN PRN Reason: Pain, moderate (4-7) Amoxicillin (Amoxil 500 Mg Cap) 1,000 mg PO Q12 [facility] PRN Reason: Protocol Last Admin: 05/31/18 21:33 Dose: 1,000 mg Aspirin (Ecotrin) 81 mg PO DAILY [facility] Last Admin: 05/31/18 10:22 Dose: Not Given Clarithromycin (Biaxin Filmtab) 500 mg PO Q12H [facility] PRN Reason: Protocol Last Admin: 05/31/18 21:36 Dose: 500 mg Docusate Sodium (Colace) 100 mg PO BID [facility] Last Admin: 05/31/18 17:42 Dose: 100 mg Enoxaparin Sodium (Lovenox) 40 mg SC DAILY [facility] Last Admin: 05/31/18 10:22 Dose: Not Given Lactated Ringer's (Lactated Ringer's) 1,000 mls @ 75 mls/hr IV .[id number] [facility] Last Admin: 05/31/18 14:53 Dose: 75 mls/hr Ceftriaxone Sodium 1 gm/ (Sodium Chloride) 100 mls @ 100 mls/hr IVPB DAILY [facility] PRN Reason: Protocol Last Admin: 05/31/18 10:31 Dose: 100 mls/hr Levothyroxine Sodium (Synthroid) 50 mcg PO 0600 [facility] Last Admin: 05/31/18 06:20 Dose: 50 mcg Losartan Potassium (Cozaar) 25 mg PO DAILY [facility] Last Admin: 05/31/18 10:30 Dose: 25 mg Magnesium Citrate (Citrate Of Mag) 120 ml PO Q24H [facility] Last Admin: 05/31/18 18:32 Dose: 120 ml Metoclopramide HCl (Reglan) 5 mg IVP Q6H [facility] Last Admin: 05/31/18 21:33 Dose: 5 mg Nystatin (Nystatin Oral Susp) 5 ml PO QID [facility] Last Admin: 05/31/18 21:32 Dose: 5 ml Pantoprazole Sodium (Protonix Ec Tab) 40 mg PO DAILY [facility] Last Admin: 05/31/18 10:23 Dose: Not Given Phenytoin Sodium (Dilantin) 100 mg PO TID [facility] Last Admin: 05/31/18 17:42 Dose: 100 mg Rosuvastatin Calcium (Crestor) 10 mg PO HS [facility] Last Admin: 05/31/18 21:32 Dose: 10 mg Sucralfate (Carafate Oral Susp) 1 gm PO ACBHS [facility] Last Admin: 05/31/18 21:32 Dose: 1 gm - Labs Labs: 05/31/18 11:17 05/31/18 11:17 PT 12.4 SECONDS (9.7-12.2) H 05/26/18 17:23 INR 1.1 05/26/18 17:23 APTT 31 SECONDS (21-34) 05/26/18 17:23
[2018-06-01 00:23] VITALS: TEMP 98.2
[2018-06-01] MEDS: Lactated Ringer's 1,000 ML IV SCH ×2 (01:15→05:30)
--- NOTE | 2018-06-01 04:11 | PN ---
DATE: 05/31/2018 SUBJECTIVE: The patient is feeling better, status post EGD. No shortness of breath. No chest pain. No cough. PHYSICAL EXAMINATION: VITAL SIGNS: BP 127/80, pulse 56, respiratory rate 20, and temperature 98.8. LUNGS: Clear. CARDIOVASCULAR SYSTEM: S1 and S2 are regular. ABDOMEN: Soft. ASSESSMENT: 1. Dysphagia, mostly . 2. Hypertension. 3. Status post near syncope. PLAN: Continue current medication. Possible discharge in a.m. The patient is medically stable. Israel Mesa MD
[2018-06-01] MEDS: Levothyroxine 50 MCG TAB PO SCH (05:35)
[2018-06-01] MEDS: Sucralfate 1 gm/10 ml Oral Susp UD PO SCH (06:59)
[2018-06-01 09:17] VITALS: BP 138/82; PULSE 71; O2SAT 97
[2018-06-01] MEDS: Enoxaparin 40 mg Syringe SC SCH (09:40)
[2018-06-01] MEDS: Pantoprazole 40 mg EC Tab PO SCH (09:40)
[2018-06-01] MEDS: Nystatin 100,000 Units/ml Oral Susp 5 ml UD PO SCH (09:59)
--- NOTE | 2018-06-01 15:56 | PN ---
DATE: 06/01/2018 LOCATION: 350, bed A. SUBJECTIVE: This is a 73-year-old male post upper and lower endoscopy seen and examined in rounds without significant clinical changes with less episodes of dysphagia and less nausea and dyspepsia, denied any vomiting, no chest pain, palpitation, or significant complaint of shortness of breath. No chills or fever. The entire chart is reviewed including but not limited to the most recent lab and radiology study results, current and the previous medication list, current and the previous medical records. Most recent lab results showed normal CBC, with creatinine 0.7, increased CEA and CA 19-9 before, today's lab is still pending. PHYSICAL EXAMINATION: GENERAL: A 73-year-old male. VITAL SIGNS: Afebrile with pulse of 72, respiratory rate of 20 to 22, and blood pressure of 130/80. HEENT: Showed pale, dry oral mucous membrane. Nonicteric sclerae. LUNGS: Few scattered crepitation. Decreased air entry at bases. HEART: Positive S1 and S2. ABDOMEN: Soft with mild generalized tenderness. No mass or organomegaly. No rebound tenderness or guarding. EXTREMITIES: No significant clubbing, cyanosis, or edema. NEUROLOGICAL: No reported neurological deficits, sensory, or motor. IMPRESSION: 1. Dysphagia, gradually improved. 2. Gastritis, biopsy positive for Helicobacter pylori infection, the patient will need percutaneous endoscopic gastrostomy treatment as outpatient. 3. Diverticulosis with mild episode of acute diverticulitis, stable. 4. Known history of hyperlipidemia, seizure disorder with hypertension, stable. SUGGESTIONS: 1. Continue current management. 2. Adjust oral intake, no citrus, no seeds. 3. Further recommendations to follow. Elizabeth Stover MD
--- NOTE | 2018-06-01 21:22 | CP.PCM.DIS ---
Provider - Provider Date of Admission: 05/25/18 17:37 Attending physician: Israel Mesa MD Hospital Course - Lab Results Lab Results: Most Recent Lab Values WBC 5.4 K/uL (4.8-10.8) 05/31/18 11:17 RBC 4.16 Mil/uL (4.40-5.90) L 05/31/18 11:17 Hgb 13.0 g/dL (12.0-18.0) 05/31/18 11:17 Hct 38.4 % (35.0-51.0) 05/31/18 11:17 MCV 92.4 fL (80.0-94.0) 05/31/18 11:17 MCH 31.2 pg (27.0-31.0) H 05/31/18 11:17 MCHC 33.8 g/dL (33.0-37.0) 05/31/18 11:17 RDW 14.4 % (11.5-14.5) 05/31/18 11:17 Plt Count 146 K/uL (130-400) 05/31/18 11:17 MPV 9.1 fL (7.2-11.7) 05/31/18 11:17 Neut % (Auto) 62.4 % (50.0-75.0) 05/31/18 11:17 Lymph % (Auto) 20.4 % (20.0-40.0) 05/31/18 11:17 [place] % (Auto) 12.6 % (0.0-10.0) H 05/31/18 11:17 Eos % (Auto) 3.9 % (0.0-4.0) 05/31/18 11:17 Baso % (Auto) 0.7 % (0.0-2.0) 05/31/18 11:17 Neut # (Auto) 3.4 K/uL (1.8-7.0) 05/31/18 11:17 Lymph # (Auto) 1.1 K/uL (1.0-4.3) 05/31/18 11:17 [place] # (Auto) 0.7 K/uL (0.0-0.8) 05/31/18 11:17 Eos # (Auto) 0.2 K/uL (0.0-0.7) 05/31/18 11:17 Baso # (Auto) 0.0 K/uL (0.0-0.2) 05/31/18 11:17 PT 12.4 SECONDS (9.7-12.2) H 05/26/18 17:23 INR 1.1 05/26/18 17:23 APTT 31 SECONDS (21-34) 05/26/18 17:23 Sodium 139 mmol/L (132-148) 05/31/18 11:17 Potassium 4.1 mmol/L (3.6-5.2) 05/31/18 11:17 Chloride 100 mmol/L (98-107) 05/31/18 11:17 Carbon Dioxide 28 mmol/L (22-30) 05/31/18 11:17 Anion Gap 14 (10-20) 05/31/18 11:17 BUN 9 mg/dL (9-20) 05/31/18 11:17 Creatinine 0.7 mg/dL (0.8-1.5) L 05/31/18 11:17 Est GFR ( Amer) > 60 05/31/18 11:17 Est GFR (Non-Af Amer) > 60 05/31/18 11:17 Random Glucose 97 mg/dL (75-110) 05/31/18 11:17 Calcium 9.1 mg/dl (8.6-10.4) 05/31/18 11:17 Magnesium 1.9 mg/dL (1.6-2.3) 05/25/18 08:46 Total Bilirubin 0.4 mg/dL (0.2-1.3) 05/25/18 08:46 AST 24 U/L (17-59) 05/25/18 08:46 ALT 25 U/L (21-72) 05/25/18 08:46 Alkaline Phosphatase 61 U/L (38-126) 05/25/18 08:46 Troponin I < 0.0120 ng/mL (0.00-0.120) 05/25/18 08:46 NT-Pro-B Natriuret Pep 137 pg/mL (0-900) 05/25/18 08:46 Total Protein 6.8 g/dL (6.3-8.3) 05/25/18 08:46 Albumin 4.2 g/dL (3.5-5.0) 05/25/18 08:46 Globulin 2.7 gm/dL (2.2-3.9) 05/25/18 08:46 Albumin/Globulin Ratio 1.6 (1.0-2.1) 05/25/18 08:46 Alpha Fetoprotein 2.4 ng/mL (0.0-7.5) 05/26/18 17:23 Carcinoembryonic Ag 7.0 ng/mL (0-3.0) H 05/26/18 17:23 CA 19-9 Antigen 62.8 U/mL (0-37) H 05/26/18 17:23 Free T4 0.47 ng/dL (0.78-2.19) L 05/25/18 10:42 Total T3 1.55 nmol/L (1.49-2.60) 05/25/18 10:42 TSH 3rd Generation 13.70 mIU/L (0.46-4.68) H 05/25/18 08:46 Urine Color Yellow (YELLOW) 05/25/18 14:06 Urine Clarity Clear (Clear) 05/25/18 14:06 Urine pH 7.0 (5.0-8.0) 05/25/18 14:06 Ur Specific [place] 1.004 (1.003-1.030) 05/25/18 14:06 Urine Protein Negative mg/dL (NEGATIVE) 05/25/18 14:06 Urine Glucose (UA) Normal mg/dL (Normal) 05/25/18 14:06 Urine Ketones Negative mg/dL (NEGATIVE) 05/25/18 14:06 Urine Blood Negative (NEGATIVE) 05/25/18 14:06 Urine Nitrate Negative (NEGATIVE) 05/25/18 14:06 Urine Bilirubin Negative (NEGATIVE) 05/25/18 14:06 Urine Urobilinogen Normal mg/dL (0.2-1.0) 05/25/18 14:06 Ur Leukocyte Esterase Neg Benny/uL (Negative) 05/25/18 14:06 Urine WBC (Auto) < 1 /hpf (0-5) 05/25/18 14:06 Urine RBC (Auto) < 1 /hpf (0-3) 05/25/18 14:06 Phenytoin 11.7 ug/mL (10-20) 05/27/18 16:52 Discharge Plan - Discharge Medications Prescriptions: Amoxicillin 1,000 mg PO BID 10 Days #40 tablet Clarithromycin [Clarithromycin ER] 500 mg PO BID #20 ter Phenytoin, Extended [Dilantin] 100 mg PO TID #90 cer Omeprazole 20 mg PO BID 10 Days #20 tab.rap. Levothyroxine [Synthroid] 0.05 mg PO 0600 #30 tab - Follow Up Plan Condition: FAIR Disposition: HOME/ ROUTINE Instructions: Weakness (ED) Additional Instructions: Please f/u with Dr. Mesa office in 1 week Please f/u wiht Dr. Herndon office in 2 weeks Resume all home medications Continue medication as pe rmed. rec. Please lemon picker medication from [facility] pharmacy - [place] Referrals: Chao Herndon MD [Staff Provider] - Israel Mesa MD [Staff Provider] -
--- NOTE | 2018-06-02 03:57 | DS ---
ADMISSION DIAGNOSIS: Dizziness. DISCHARGE DIAGNOSES: 1. Dizziness. 2. Odynophagia. 3. Dehydration. 4. Hypertension. HISTORY OF PRESENT ILLNESS: This is a 73-year-old white male with history of hypertension, hyperlipidemia, and anxiety, who came in because of dizziness. The patient was admitted to the floor. The patient was given IV fluids. Monitored the patient. A full workup was done with no acute findings were noted. The patient also complained of dysphagia. She underwent an EGD and a colonoscopy which were benign. The patient was seen by ENT. The patient was afebrile. He is for discharge. PHYSICAL EXAMINATION: GENERAL: Blood pressure 138/52, pulse 71, respiratory rate 20, temperature 98.2. LUNGS: Clear. CVS: S1 and S2, regular. ABDOMEN: Soft. PLAN: Discharge the patient. Follow up with me in one week. Israel Mesa MD
== END 2018-06-01 13:45 | disposition home or self-care (01) | DRG 149 ==
LOC: C.ER 07:56 → C.9E 13:20 → C.3T 14:31 → OBSVTOIN 17:37 → C.3T 05-26 19:22
PROVIDERS: ADMIT Internal Medicine; ATTEND Internal Medicine
PROC: 0CJS8ZZ Inspection of Larynx, Via Natural or Artificial Opening Endoscopic (ICD-10-PCS; 2018-05-29)
PROC: 0DB68ZX Excision of Stomach, Via Natural or Artificial Opening Endoscopic, Diagnostic (ICD-10-PCS; principal; 2018-05-30 08:01)
PROC: 0DBM8ZX Excision of Descending Colon, Via Natural or Artificial Opening Endoscopic, Diagnostic (ICD-10-PCS; 2018-05-31)
DX: R42 Dizziness and giddiness (principal); E86.0 Dehydration; E46 Unspecified protein-calorie malnutrition; K57.92 Diverticulitis of intestine, part unspecified, without perforation or abscess without bleeding; B96.81 Helicobacter pylori [H. pylori] as the cause of diseases classified elsewhere; J38.7 Other diseases of larynx; K29.50 Unspecified chronic gastritis without bleeding; K44.9 Diaphragmatic hernia without obstruction or gangrene; R13.10 Dysphagia, unspecified; K59.00 Constipation, unspecified; I10 Essential (primary) hypertension; I25.10 Atherosclerotic heart disease of native coronary artery without angina pectoris; G40.909 Epilepsy, unspecified, not intractable, without status epilepticus; E03.9 Hypothyroidism, unspecified; E78.5 Hyperlipidemia, unspecified; E78.00 Pure hypercholesterolemia, unspecified; Z87.11 Personal history of peptic ulcer disease

== ENCOUNTER 2018-10-01 12:44 | Observation (INO) | payer MEDICARE, OTHER ==
[2018-10-01 13:03] VITALS: BMI 22.6
--- NOTE | 2018-10-01 14:10 | RAD ---
HISTORY: chest pain COMPARISON: Chest x-ray performed 05/25/18 TECHNIQUE: Chest, one view. FINDINGS: LUNGS: Hyperinflation may be seen in the setting of COPD. Increased lucencies especially within the bilateral upper lung voss compatible with underlying emphysema. Biapical pleural thickening and granulomatous changes. No focal consolidation. Please note that chest x-ray has limited sensitivity for the detection of pulmonary masses. PLEURA: No significant pleural effusion identified. No definite pneumothorax . CARDIOVASCULAR: Cardiomegaly. Ectatic aorta. Atherosclerotic calcifications. OSSEOUS STRUCTURES: Degenerative changes. VISUALIZED UPPER ABDOMEN: Unremarkable. OTHER FINDINGS: None. IMPRESSION: COPD/emphysema. Upper lobe granulomatous changes and biapical pleural thickening. Cardiomegaly.
[2018-10-01 14:14] LABS: BASO % 0.4 % (0.0-2.0); EOS # 0.1 K/uL (0.0-0.7); EOS % 1.7 % (0.0-4.0); HEMOGLOBIN 14.2 g/dL (12.0-18.0); LYMPH # 0.9 K/uL (1.0-4.3); LYMPH % 16.1 % (20.0-40.0); MEAN CELL VOLUME 94.1 fL (80.0-94.0); MEAN CORPUSCULAR HEMOGLOBIN 31.7 pg (27.0-31.0); MEAN CORPUSCULAR HGB CONC 33.7 g/dL (33.0-37.0); MEAN PLATELET VOLUME 9.8 fL (7.2-11.7); MONO # 0.8 K/uL (0.0-0.8); MONO % 13.5 % (0.0-10.0); NEUT # 3.9 K/uL (1.8-7.0); NEUT % 68.3 % (50.0-75.0); RBC 4.48 Mil/uL (4.40-5.90); RED CELL DISTRIBUTION WIDTH 13.4 % (11.5-14.5); WHITE BLOOD COUNT 5.7 K/uL (4.8-10.8)
--- NOTE | 2018-10-01 14:21 | C.PDOC ---
History Of Present Illness 73 year old male with a history of HTN, seizure, and hyperlipidemia presents to the emergency department with complaints of dizziness and difficulty ambulating. Patient is a poor historian, only reporting mild headache with lightheadedness. Patient offers no complaints at this time. Time Seen by Provider: 10/01/18 13:38 Chief Complaint (Nursing): Dizziness/Lightheaded History Per: Patient Onset/Duration Of Symptoms: Hrs Current Symptoms Are (Timing): Still Present Past Medical History Reviewed: Historical Data, Nursing Documentation, Vital Signs Vital Signs: Last Vital Signs Temp 97.9 F 10/01/18 13:03 Pulse 71 10/01/18 13:03 Resp 18 10/01/18 13:03 BP 113/75 10/01/18 13:03 Pulse Ox 95 10/01/18 13:03 - Medical History PMH: HTN, Hypercholesterolemia, Seizures Denies: Chronic Kidney Disease Surgical History: No Surg Hx - [facility] Procedures ESOPHAGOGASTRODUODENOSCOPY [EGD] W/CLOSED BIOPSY (04/04/04) EXCISION OF DESCENDING COLON, ENDO, DIAGN (05/25/18) EXCISION OF STOMACH, ENDO, DIAGN (05/25/18) FLUOROSCOPY OF LEFT HEART USING OTHER CONTRAST (04/02/18) FLUOROSCOPY OF MULTIPLE CORONARY ARTERIES USING OTH CONTRAST (04/02/18) INSPECTION OF LARYNX, ENDO (05/25/18) MEASURE CARDIAC SAMPL & PRESSURE, BILATERAL, PERC (04/02/18) Family History: States: No Known Family Hx - Social History Hx Alcohol Use: No Hx Substance Use: No - Immunization History Hx Tetanus Toxoid Vaccination: No Hx Influenza Vaccination: No Hx Pneumococcal Vaccination: No Review Of Systems Except As Marked, All Systems Reviewed And Found Negative. Cardiovascular: Positive for: Light Headedness Neurological: Positive for: Headache, Dizziness Physical Exam - Physical Exam Appears: Non-toxic, No Acute Distress Skin: Warm, Dry Head: Atraumatic, Normacephalic Eye(s): bilateral: Normal Inspection, PERRL, EOMI Neck: Normal, Supple Chest: Symmetrical, No Tenderness Cardiovascular: Rhythm Regular, No Murmur Respiratory: Normal Breath Sounds, No Rales, No Rhonchi, No Wheezing Gastrointestinal/Abdominal: Soft, No Tenderness, No Guarding, No Rebound Extremity: Normal ROM Neurological/Psych: Oriented x3, Normal Speech, Normal Cognition, Normal Motor, Normal Sensation ED Course And Treatment - Laboratory Results Result Diagrams: 10/01/18 14:09 10/01/18 14:09 ECG: Interpreted By Me, Viewed By Me Interpretation Of ECG: Normal sinus rhythm at 62bpm, poor traces secondary to artifact. No ST/T wave changes. Rate From EC O2 Sat by Pulse Oximetry: 95 (RA) Pulse Ox Interpretation: Normal Medical Decision Making Medical Decision Making: ro metabolci infectious cardiac intracranial etiology Plan: CT Head EKG Chemistry Bloodwork CXR Influenza AB Urinalysis labs neg. ct neg.discused with dr mesa. as pt lives byhimself, near syncope, will obs Disposition - Disposition Disposition: HOSPITALIZED Disposition Time: 16:24 Condition: STABLE Forms: [facility] (Pashto) - Clinical Impression Clinical Impression: Near syncope, Dizziness - Scribe Statement The provider has reviewed the documentation as recorded by the Scribe (Ender Adam) Provider Attestation: All medical record entries made by the Scribe were at my direction and personally dictated by me. I have reviewed the chart and agree that the record accurately reflects my personal performance of the history, physical exam, medical decision making, and the department course for this patient. I have also personally directed, reviewed, and agree with the discharge instructions and disposition. Decision To Admit - Pt Status Changed To: Hospital Disposition Of: Observation - . Bed Request Type: Telemetry Admitting Physician: Israel Mesa Patient Diagnosis: Near syncope, Dizziness
[2018-10-01 14:26] LABS: INR 1.1; PROTHROMBIN TIME 12.4 SECONDS (9.7-12.2)
[2018-10-01 14:31] LABS: ALB/GLOB RATIO 1.5 (1.0-2.1); ALBUMIN 4.3 g/dL (3.5-5.0); ALT/SGPT 38 U/L (21-72); AST/SGOT 60 U/L (17-59); BLOOD UREA NITROGEN 16 mg/dL (9-20); GFR NON-AFRICAN AMERICAN > 60
--- NOTE | 2018-10-01 15:56 | CT ---
Date of service: 10/01/2018 PROCEDURE: CT HEAD WITHOUT CONTRAST. HISTORY: Dizziness, near syncope COMPARISON: None available. TECHNIQUE: Axial computed tomography images were obtained through the head/brain without intravenous contrast. Radiation dose: Total exam DLP = 1091.41 mGy-cm. This CT exam was performed using one or more of the following dose reduction techniques: Automated exposure control, adjustment of the mA and/or kV according to patient size, and/or use of iterative reconstruction technique. FINDINGS: HEMORRHAGE: No intracranial hemorrhage. BRAIN: There appears to be mild diffuse/confluent chronic periventricular white matter ischemic changes. There may also be a few tiny chronic bilateral basal nuclei lacunar type infarcts. No obvious parenchymal nor extra-axial masses or collections seen on this noncontrast study. Mild to moderate generalized volume loss. VENTRICLES: No obstructive hydrocephalus. CALVARIUM: There are no acute calvarial fractures. PARANASAL SINUSES: Visualized paranasal sinuses are well-developed however there is moderate mucosal thickening in the right maxillary antrum associate with sclerosis and thickening of the posterolateral wall. Mild mucosal thickening left maxillary antrum. Subtotal opacification of many of the left ethmoid air cells with mild mucosal thickening multiple right sided ethmoid air cells.. Mild mucosal thickening extends superiorly into the inferior margin of frontal sinus. MASTOID AIR CELLS: Unremarkable as visualized. No inflammatory changes. OTHER FINDINGS: None. IMPRESSION: No acute intracranial hemorrhage. Mild chronic periventricular white matter ischemic changes. There may also be a few tiny chronic bilateral basal nuclei lacunar type infarcts. Mild generalized volume loss. Mucoperiosteal inflammatory changes seen within the aforementioned paranasal sinuses
[2018-10-01 18:15] LABS: URINE BILIRUBIN NEGATIVE (NEGATIVE); URINE BLOOD NEGATIVE (NEGATIVE); URINE CLARITY Clear (Clear); URINE COLOR Yellow (YELLOW); URINE GLUCOSE (UA) NORMAL (Normal); URINE LEUKOCYTE ESTERASE NEG Leu/uL (Negative); URINE PROTEIN NEGATIVE (NEGATIVE); URINE UROBILINOGEN NORMAL mg/dL (0.2-1.0)
[2018-10-01 20:57] LABS: CK-MB 13.2 ng/mL (0.0-3.38)
--- NOTE | 2018-10-01 21:04 | CP.PCM.CON ---
History of Present Illness - History of Present Illness History of Present Illness: 73 year old male with a history of HTN, seizure, and hyperlipidemia presents to the emergency department with complaints of dizziness and difficulty ambulating. Patient is a poor historian, only reporting mild headache with ligh theadedness. Patient offers no complaints at this time. Time Seen by Provider: 10/01/18 13:38 Chief Complaint (Nursing): Dizziness/Lightheaded History Per: Patient Onset/Duration Of Symptoms: Hrs Current Symptoms Are (Timing): Still Present Past Medical History Reviewed: Historical Data, Nursing Documentation, Vital Signs Vital Signs: Last Vital Signs Temp 97.9 F 10/01/18 13:03 Pulse 71 10/01/18 13:03 Resp 18 10/01/18 13:03 BP 113/75 10/01/18 13:03 Pulse Ox 95 10/01/18 13:03 - Medical History PMH: HTN, Hypercholesterolemia, Seizures Denies: Chronic Kidney Disease Surgical History: No Surg Hx - [facility] Procedures ESOPHAGO-GASTRODUODENOSCOPY [EGD] W/CLOSED BIOPSY (04/04/04) EXCISION OF DESCENDING COLON, ENDO, DIAGN (05/25/18) EXCISION OF STOMACH, ENDO, DIAGN (05/25/18) FLUOROSCOPY OF LEFT HEART USING OTHER CONTRAST (04/02/18) FLUOROSCOPY OF MULTIPLE CORONARY ARTERIES USING OTH CONTRAST (04/02/18) INSPECTION OF LARYNX, ENDO (05/25/18) MEASURE CARDIAC SAMPL & PRESSURE, BILATERAL, PERC (04/02/18) Family History: States: No Known Family Hx - Social History Hx Alcohol Use: No Hx Substance Use: No - Immunization History Hx Tetanus Toxoid Vaccination: No Hx Influenza Vaccination: No Hx Pneumococcal Vaccination: No Review Of Systems Except As Marked, All Systems Reviewed And Found Negative. Cardiovascular: Positive for: Light Headedness Neurological: Positive for: Headache, Dizziness Physical Exam - Physical Exam Appears: Non-toxic, No Acute Distress Skin: Warm, Dry Head: Atraumatic, Normacephalic Eye(s): bilateral: Normal Inspection, NISSA, EOMI Neck: Normal, Supple Chest: Symmetrical, No Tenderness Cardiovascular: Rhythm Regular, No Murmur Respiratory: Normal Breath Sounds, No Rales, No Rhonchi, No Wheezing Gastrointestinal/Abdominal: Soft, No Tenderness, No Guarding, No Rebound Extremity: Normal ROM Neurological/Psych: Oriented x3, Normal Speech, Normal Cognition, Normal Motor, Normal Sensation ECG: Interpreted By ER Physician Interpretation Of ECG: Normal sinus rhythm at 62bpm, poor traces secondary to artifact. No ST/T wave changes. Rate From EC O2 Sat by Pulse Oximetry: 95 (RA) Pulse Ox Interpretation: Normal Medical Decision Making Medical Decision Making: ro metabolci infectious cardiac intracranial etiology Plan: CT Head EKG Chemistry Bloodwork CXR Influenza AB Urinalysis IMPRESSION of CT Brain: No acute intracranial hemorrhage. Mild chronic periventricular white matter ischemic changes. There may also be a few tiny chronic bilateral basal nuclei lacunar type infarcts. Mild generalized volume loss. Mucoperiosteal inflammatory changes seen within the aforementioned paranasal sinuses IMPRESSION of CXR: COPD/emphysema. Upper lobe granulomatous changes and biapical pleural thickening. Cardiomegaly. It is not clear if he lives by himself, He has a history of near syncope, will admit to observe. By asking the patient he said that he lives with his sister and her son. Disposition - Disposition Disposition: HOSPITALIZED Disposition Time: 16:24 Condition: STABLE Forms: [facility] (Swedish) - Clinical Impression Clinical Impression: Near syncope, Dizziness Decision To Admit - Pt Status Changed To: Hospital Disposition Of: Observation - . Bed Request Type: Telemetry Admitting Physician: Israel Mesa Patient Diagnosis: Near syncope, Dizziness Past Patient History - Infectious Disease Hx of Infectious Diseases: None - Past Medical History & Family History Past Medical History?: Yes - Past Social History Smoking Status: Never Smoked - CARDIAC Hx Hypercholesterolemia: Yes Hx Hypertension: Yes - PULMONARY Hx Respiratory Disorders: No - NEUROLOGICAL Hx Seizures: Yes - HEENT Hx HEENT Problems: No - RENAL Hx Chronic Kidney Disease: No - ENDOCRINE/METABOLIC Hx Endocrine Disorders: No - HEMATOLOGICAL/ONCOLOGICAL Hx Blood Disorders: No - INTEGUMENTARY Hx Dermatological Problems: No - MUSCULOSKELETAL/RHEUMATOLOGICAL Hx Falls: No - GASTROINTESTINAL Hx Gastrointestinal Disorders: No - GENITOURINARY/GYNECOLOGICAL Hx Genitourinary Disorders: No - PSYCHIATRIC Hx Substance Use: No - SURGICAL HISTORY Hx Surgeries: No - ANESTHESIA Hx Anesthesia: No Meds Allergies/Adverse Reactions: Allergies Allergy/AdvReac Type Severity Reaction Status Date / Time No Known Allergies Allergy Verified 10/01/18 13:02 - Medications Medications: Current Medications Aspirin (Ecotrin) 81 mg PO DAILY [facility] Levothyroxine Sodium (Synthroid) 50 mcg PO DAILY@0630 [facility] Losartan Potassium (Cozaar) 25 mg PO DAILY [facility] Pantoprazole Sodium (Protonix Ec Tab) 20 mg PO BID [facility] Phenytoin Sodium (Dilantin) 100 mg PO TID [facility] Pneumococcal Polyvalent Vaccine (Pneumovax 23 Vaccine) 0.5 ml IM .ONCE ONE Stop: 10/02/18 10:01 Rosuvastatin Calcium (Crestor) 10 mg PO [facility] Physical Exam - Neurological Exam Additional comments: Laying down in bed. Mental status: Awake, Alert, confused, disoriented to Time at times, oriented to persons with difficulty, oriented to place. Speech is weak, hardly coherent weak in Math skills and in subtractions of 7 out of a hundred. Follows simple commands and multiple step commands. Cranial nerves II to XII: No Deficits, normal pupils, normal extraocular muscle movements. symmetrical face, central tongue, normal swallowing, Central tongue. Motor: normal tone, normal power DTR: 0 to 1/4 toes are down going by plantar stimulation. Cerebellar: Normal FNT Unable to tandem walk, HST looks Intact Sensory: looks intact touch, pain. Stature and Gait: Unable He said he was walking with help. Results - Vital Signs Recent Vital Signs: Last Vital Signs Temp 97.4 F L 10/01/18 18:15 Pulse 63 10/01/18 18:15 Resp 18 10/01/18 18:15 BP 155/85 H 10/01/18 18:15 Pulse Ox 96 10/01/18 18:20 - Labs Result Diagrams: 10/01/18 14:09 10/01/18 14:09 Labs: Laboratory Results - last 24 hr 10/01/18 10/01/18 10/01/18 14:09 14:09 14:09 WBC 5.7 RBC 4.48 Hgb 14.2 Hct 42.2 MCV 94.1 H MCH 31.7 H MCHC 33.7 RDW 13.4 Plt Count 144 MPV 9.8 Neut % (Auto) 68.3 Lymph % (Auto) 16.1 L [place] % (Auto) 13.5 H Eos % (Auto) 1.7 Baso % (Auto) 0.4 Neut # (Auto) 3.9 Lymph # (Auto) 0.9 L [place] # (Auto) 0.8 Eos # (Auto) 0.1 Baso # (Auto) 0.0 PT 12.4 H INR 1.1 APTT 30 Sodium 133 Potassium 4.2 Chloride 98 Carbon Dioxide 26 Anion Gap 13 BUN 16 Creatinine 0.8 Est GFR ( Amer) > 60 Est GFR (Non-Af Amer) > 60 Random Glucose 111 H Calcium 9.0 Total Bilirubin 0.6 AST 60 H D ALT 38 Alkaline Phosphatase 70 Total Creatine Kinase CK-MB (Mass) Troponin I < 0.0120 Total Protein 7.3 Albumin 4.3 Globulin 3.0 Albumin/Globulin Ratio 1.5 Urine Color Urine Clarity Urine pH Ur Specific [place] Urine Protein Urine Glucose (UA) Urine Ketones Urine Blood Urine Nitrate Urine Bilirubin Urine Urobilinogen Ur Leukocyte Esterase Urine WBC (Auto) Influenza Typ A,B (EIA) 10/01/18 10/01/18 10/01/18 14:09 17:57 20:24 WBC RBC Hgb Hct MCV MCH MCHC RDW Plt Count MPV Neut % (Auto) Lymph % (Auto) [place] % (Auto) Eos % (Auto) Baso % (Auto) Neut # (Auto) Lymph # (Auto) [place] # (Auto) Eos # (Auto) Baso # (Auto) PT INR APTT Sodium Potassium Chloride Carbon Dioxide Anion Gap BUN Creatinine Est GFR ( Amer) Est GFR (Non-Af Amer) Random Glucose Calcium Total Bilirubin AST ALT Alkaline Phosphatase Total Creatine Kinase 565 H CK-MB (Mass) 13.2 H Troponin I < 0.0120 Total Protein Albumin Globulin Albumin/Globulin Ratio Urine Color Yellow Urine Clarity Clear Urine pH 6.0 Ur Specific [place] 1.008 Urine Protein Negative Urine Glucose (UA) Normal Urine Ketones Trace Urine Blood Negative Urine Nitrate Negative Urine Bilirubin Negative Urine Urobilinogen Normal Ur Leukocyte Esterase Neg Urine WBC (Auto) < 1 Influenza Typ A,B (EIA) Negative for flu a/b - Imaging and Cardiology CT scan - abdomen Status: Image reviewed by me Assessment & Plan (1) Seizures Assessment and Plan: He has a history of Seizures and is on Dilantin. R/O Seizures exacerbation. Dilantin is not controlling well his seizures and another medicine for seizures needs to be added. Status: Acute (2) Dizziness Status: Acute (3) Near syncope Status: Acute (4) Abdominal pain Status: Acute (5) Chest pain Assessment and Plan: IMPRESSION of CXR: COPD/emphysema. Upper lobe granulomatous changes and biapical pleural thickening. Cardiomegaly. Status: Acute (6) Dizziness Assessment and Plan: R/O Seizures as a cause, R/O sinusitis, R/O general fatigue. and lung problems including emphysema Status: Acute (7) Near syncope Assessment and Plan: R/O Seizure exacerbation. Status: Acute (8) Weakness Assessment and Plan: Might be related to his current symptoms. Status: Acute (9) CVA (cerebral vascular accident) Assessment and Plan: R/O CVA, MRI Brain will be performed. CT Brain is showing bilateral basal nuclei lacunar infarcts. Patient has a history of paranasal sinusitis, seen by CT Brain This might cause Headache, Dizziness, Confusion. Sinusitis needs to be treated. Confusion,versus dementia IMPRESSION of CT Brain: No acute intracranial hemorrhage. Mild chronic periventricular white matter ischemic changes. There may also be a few tiny chronic bilateral basal nuclei lacunar type infarcts. Mild generalized volume loss. Mucoperiosteal inflammatory changes seen within the aforementioned paranasal sinuses Status: Acute
--- NOTE | 2018-10-01 22:46 | CP.PCM.HP ---
Past Patient History - Infectious Disease Hx of Infectious Diseases: None - Past Medical History & Family History Past Medical History?: Yes - Past Social History Smoking Status: Never Smoked - CARDIAC Hx Hypercholesterolemia: Yes Hx Hypertension: Yes - PULMONARY Hx Respiratory Disorders: No - NEUROLOGICAL Hx Seizures: Yes - HEENT Hx HEENT Problems: No - RENAL Hx Chronic Kidney Disease: No - ENDOCRINE/METABOLIC Hx Endocrine Disorders: No - HEMATOLOGICAL/ONCOLOGICAL Hx Blood Disorders: No - INTEGUMENTARY Hx Dermatological Problems: No - MUSCULOSKELETAL/RHEUMATOLOGICAL Hx Falls: No - GASTROINTESTINAL Hx Gastrointestinal Disorders: No - GENITOURINARY/GYNECOLOGICAL Hx Genitourinary Disorders: No - PSYCHIATRIC Hx Substance Use: No - SURGICAL HISTORY Hx Surgeries: No - ANESTHESIA Hx Anesthesia: No Meds Allergies/Adverse Reactions: Allergies Allergy/AdvReac Type Severity Reaction Status Date / Time No Known Allergies Allergy Verified 10/01/18 13:02 Results - Vital Signs Recent Vital Signs: Last Vital Signs Temp 97.4 F L 10/01/18 18:15 Pulse 63 10/01/18 18:15 Resp 18 10/01/18 18:15 BP 155/85 H 10/01/18 18:15 Pulse Ox 96 10/01/18 18:20 - Labs Result Diagrams: 10/01/18 14:09 10/01/18 14:09 Labs: Laboratory Results - last 24 hr 10/01/18 10/01/18 10/01/18 14:09 14:09 14:09 WBC 5.7 RBC 4.48 Hgb 14.2 Hct 42.2 MCV 94.1 H MCH 31.7 H MCHC 33.7 RDW 13.4 Plt Count 144 MPV 9.8 Neut % (Auto) 68.3 Lymph % (Auto) 16.1 L [place] % (Auto) 13.5 H Eos % (Auto) 1.7 Baso % (Auto) 0.4 Neut # (Auto) 3.9 Lymph # (Auto) 0.9 L [place] # (Auto) 0.8 Eos # (Auto) 0.1 Baso # (Auto) 0.0 PT 12.4 H INR 1.1 APTT 30 Sodium 133 Potassium 4.2 Chloride 98 Carbon Dioxide 26 Anion Gap 13 BUN 16 Creatinine 0.8 Est GFR ( Amer) > 60 Est GFR (Non-Af Amer) > 60 Random Glucose 111 H Calcium 9.0 Total Bilirubin 0.6 AST 60 H D ALT 38 Alkaline Phosphatase 70 Total Creatine Kinase CK-MB (Mass) Troponin I < 0.0120 Total Protein 7.3 Albumin 4.3 Globulin 3.0 Albumin/Globulin Ratio 1.5 TSH 3rd Generation Urine Color Urine Clarity Urine pH Ur Specific [place] Urine Protein Urine Glucose (UA) Urine Ketones Urine Blood Urine Nitrate Urine Bilirubin Urine Urobilinogen Ur Leukocyte Esterase Urine WBC (Auto) Influenza Typ A,B (EIA) 10/01/18 10/01/18 10/01/18 14:09 17:57 20:24 WBC RBC Hgb Hct MCV MCH MCHC RDW Plt Count MPV Neut % (Auto) Lymph % (Auto) [place] % (Auto) Eos % (Auto) Baso % (Auto) Neut # (Auto) Lymph # (Auto) [place] # (Auto) Eos # (Auto) Baso # (Auto) PT INR APTT Sodium Potassium Chloride Carbon Dioxide Anion Gap BUN Creatinine Est GFR ( Amer) Est GFR (Non-Af Amer) Random Glucose Calcium Total Bilirubin AST ALT Alkaline Phosphatase Total Creatine Kinase 565 H CK-MB (Mass) 13.2 H Troponin I < 0.0120 Total Protein Albumin Globulin Albumin/Globulin Ratio TSH 3rd Generation 0.78 Urine Color Yellow Urine Clarity Clear Urine pH 6.0 Ur Specific [place] 1.008 Urine Protein Negative Urine Glucose (UA) Normal Urine Ketones Trace Urine Blood Negative Urine Nitrate Negative Urine Bilirubin Negative Urine Urobilinogen Normal Ur Leukocyte Esterase Neg Urine WBC (Auto) < 1 Influenza Typ A,B (EIA) Negative for flu a/b
--- NOTE | 2018-10-01 23:47 | CP.PCM.CON ---
History of Present Illness - History of Present Illness History of Present Illness: Patient seen and evaluated Admitted for dizziness and syncope Syncope eval work up Past Patient History - Infectious Disease Hx of Infectious Diseases: None - Past Medical History & Family History Past Medical History?: Yes - Past Social History Smoking Status: Never Smoked - CARDIAC Hx Hypercholesterolemia: Yes Hx Hypertension: Yes - PULMONARY Hx Respiratory Disorders: No - NEUROLOGICAL Hx Seizures: Yes - HEENT Hx HEENT Problems: No - RENAL Hx Chronic Kidney Disease: No - ENDOCRINE/METABOLIC Hx Endocrine Disorders: No - HEMATOLOGICAL/ONCOLOGICAL Hx Blood Disorders: No - INTEGUMENTARY Hx Dermatological Problems: No - MUSCULOSKELETAL/RHEUMATOLOGICAL Hx Falls: No - GASTROINTESTINAL Hx Gastrointestinal Disorders: No - GENITOURINARY/GYNECOLOGICAL Hx Genitourinary Disorders: No - PSYCHIATRIC Hx Substance Use: No - SURGICAL HISTORY Hx Surgeries: No - ANESTHESIA Hx Anesthesia: No Meds Allergies/Adverse Reactions: Allergies Allergy/AdvReac Type Severity Reaction Status Date / Time No Known Allergies Allergy Verified 10/01/18 13:02 - Medications Medications: Current Medications Aspirin (Ecotrin) 81 mg PO DAILY [facility] Levothyroxine Sodium (Synthroid) 50 mcg PO DAILY@0630 [facility] Losartan Potassium (Cozaar) 25 mg PO DAILY [facility] Pantoprazole Sodium (Protonix Ec Tab) 20 mg PO BID [facility] Phenytoin Sodium (Dilantin) 100 mg PO TID [facility] Pneumococcal Polyvalent Vaccine (Pneumovax 23 Vaccine) 0.5 ml IM .ONCE ONE Stop: 10/02/18 10:01 Rosuvastatin Calcium (Crestor) 10 mg PO HS [facility] Last Admin: 10/01/18 22:51 Dose: 10 mg Results - Vital Signs Recent Vital Signs: Last Vital Signs Temp 97.4 F L 10/01/18 18:15 Pulse 63 10/01/18 18:15 Resp 18 10/01/18 18:15 BP 155/85 H 10/01/18 18:15 Pulse Ox 96 10/01/18 18:20 - Labs Result Diagrams: 10/01/18 14:09 10/01/18 14:09 Labs: Laboratory Results - last 24 hr 10/01/18 10/01/18 10/01/18 14:09 14:09 14:09 WBC 5.7 RBC 4.48 Hgb 14.2 Hct 42.2 MCV 94.1 H MCH 31.7 H MCHC 33.7 RDW 13.4 Plt Count 144 MPV 9.8 Neut % (Auto) 68.3 Lymph % (Auto) 16.1 L [place] % (Auto) 13.5 H Eos % (Auto) 1.7 Baso % (Auto) 0.4 Neut # (Auto) 3.9 Lymph # (Auto) 0.9 L [place] # (Auto) 0.8 Eos # (Auto) 0.1 Baso # (Auto) 0.0 PT 12.4 H INR 1.1 APTT 30 Sodium 133 Potassium 4.2 Chloride 98 Carbon Dioxide 26 Anion Gap 13 BUN 16 Creatinine 0.8 Est GFR ( Amer) > 60 Est GFR (Non-Af Amer) > 60 Random Glucose 111 H Calcium 9.0 Total Bilirubin 0.6 AST 60 H D ALT 38 Alkaline Phosphatase 70 Total Creatine Kinase CK-MB (Mass) Troponin I < 0.0120 Total Protein 7.3 Albumin 4.3 Globulin 3.0 Albumin/Globulin Ratio 1.5 TSH 3rd Generation Urine Color Urine Clarity Urine pH Ur Specific [place] Urine Protein Urine Glucose (UA) Urine Ketones Urine Blood Urine Nitrate Urine Bilirubin Urine Urobilinogen Ur Leukocyte Esterase Urine WBC (Auto) Influenza Typ A,B (EIA) 10/01/18 10/01/18 10/01/18 14:09 17:57 20:24 WBC RBC Hgb Hct MCV MCH MCHC RDW Plt Count MPV Neut % (Auto) Lymph % (Auto) [place] % (Auto) Eos % (Auto) Baso % (Auto) Neut # (Auto) Lymph # (Auto) [place] # (Auto) Eos # (Auto) Baso # (Auto) PT INR APTT Sodium Potassium Chloride Carbon Dioxide Anion Gap BUN Creatinine Est GFR ( Amer) Est GFR (Non-Af Amer) Random Glucose Calcium Total Bilirubin AST ALT Alkaline Phosphatase Total Creatine Kinase 565 H CK-MB (Mass) 13.2 H Troponin I < 0.0120 Total Protein Albumin Globulin Albumin/Globulin Ratio TSH 3rd Generation 0.78 Urine Color Yellow Urine Clarity Clear Urine pH 6.0 Ur Specific [place] 1.008 Urine Protein Negative Urine Glucose (UA) Normal Urine Ketones Trace Urine Blood Negative Urine Nitrate Negative Urine Bilirubin Negative Urine Urobilinogen Normal Ur Leukocyte Esterase Neg Urine WBC (Auto) < 1 Influenza Typ A,B (EIA) Negative for flu a/b
[2018-10-02 01:19] VITALS: RESP 20
[2018-10-02] MEDS: Levothyroxine 50 MCG TAB PO SCH (05:54)
[2018-10-02] MEDS ORDERED: Pneumococcal 23-Valent Vaccine IM ONE (10:00)
[2018-10-02] MEDS: Pantoprazole 20 mg EC Tab PO SCH ×2 (10:26→17:47)
[2018-10-02] MEDS: Enoxaparin 40 mg Syringe SC SCH (10:31)
--- NOTE | 2018-10-02 11:54 | MRI ---
Date of service: 10/02/2018 PROCEDURE: MRI BRAIN WITHOUT CONTRAST HISTORY: H/O CVA, Seizures COMPARISON: None available. TECHNIQUE: Multiplanar, multisequence MR images of the brain were obtained without intravenous contrast enhancement. FINDINGS: HEMORRHAGE: None DWI: No evidence of an acute or early subacute infarction. BRAIN PARENCHYMA: No mass effect or edema. Mild atrophy and chronic microvascular ischemic changes. VENTRICLES: Unremarkable. No hydrocephalus. CRANIUM: Unremarkable. ORBITS: Grossly unremarkable. PARANASAL SINUSES/MASTOIDS: Clear VASCULAR SYSTEM: Skull base flow voids intact. OTHER FINDINGS: None. IMPRESSION: Atrophy and chronic microvascular ischemic disease.
--- NOTE | 2018-10-02 12:04 | CARD ---
APPROVED REPORT Date of service: 10/01/2018 EKG Measurement Heart [id number] <Conclusion> Normal sinus rhythm Nonspecific ST and T wave abnormality Abnormal ECG
--- NOTE | 2018-10-02 13:48 | CP.PCM.PN ---
<Hannah Pziano - Last Filed: 10/02/18 17:07> Subjective - Date & Time of Evaluation Date of Evaluation: 10/02/18 Time of Evaluation: 13:45 - Subjective Subjective: PGY3 progress note for cardiology Pt seen and examined at bedside. No acute events overnight. Pt continues to complain of lightheadedness and confusion. Pt is sitting in bed . Denies having any CP, SOB, abd pain, palpitations, LE swelling or pain. Objective - Vital Signs/Intake and Output Vital Signs (last 24 hours): Temp Pulse Resp BP Pulse Ox 98 F 60 20 103/66 97 10/02/18 07:00 10/02/18 07:00 10/02/18 07:00 10/02/18 07:00 10/02/18 07:00 - Medications Medications: Current Medications Aspirin (Ecotrin) 81 mg PO DAILY [facility] Last Admin: 10/02/18 10:25 Dose: 81 mg Enoxaparin Sodium (Lovenox) 40 mg SC DAILY [facility] Last Admin: 10/02/18 10:31 Dose: 40 mg Levothyroxine Sodium (Synthroid) 50 mcg PO DAILY@0630 [facility] Last Admin: 10/02/18 05:54 Dose: 50 mcg Pantoprazole Sodium (Protonix Ec Tab) 20 mg PO BID [facility] Last Admin: 10/02/18 10:26 Dose: 20 mg Phenytoin Sodium (Dilantin) 100 mg PO TID [facility] Last Admin: 10/02/18 10:26 Dose: 100 mg Rosuvastatin Calcium (Crestor) 10 mg PO HS [facility] Last Admin: 10/01/18 22:51 Dose: 10 mg - Labs Labs: 10/01/18 14:09 10/01/18 14:09 PT 12.4 SECONDS (9.7-12.2) H 10/01/18 14:09 INR 1.1 10/01/18 14:09 APTT 30 SECONDS (21-34) 10/01/18 14:09 - Constitutional Appears: Non-toxic, No Acute Distress - Head Exam Head Exam: ATRAUMATIC, NORMOCEPHALIC - ENT Exam ENT Exam: Mucous Membranes Moist - Respiratory Exam Respiratory Exam: Clear to Ausculation Bilateral. absent: Accessory Muscle Use, Rales, Rhonchi, Wheezes, Respiratory Distress - Cardiovascular Exam Cardiovascular Exam: REGULAR RHYTHM, +S1, +S2. absent: Gallop, Rubs, Murmur - GI/Abdominal Exam GI & Abdominal Exam: Soft, Normal Bowel Sounds. absent: Distended, Firm, Guarding, Rigid, Tenderness, Organomegaly - Neurological Exam Neurological Exam: Alert, Awake, Oriented x3 - Psychiatric Exam Psychiatric exam: Normal Affect, Normal Mood - Skin Skin Exam: Dry, Intact, Normal Color, Warm Assessment and Plan - Assessment and Plan (Free Text) Assessment: 73 year old male with past medical history of HTN, seizure d/o, hypothyroidism, and HLD is admitted for presyncope. MRi of brain showed atrophy and chronic microvascular ischemic disease. Initial EKG showed NSR and troponins x 2 were negative. Syncope - Cardiac cath done in 03/2018 showed 55% stenosis of proximla LAD - Echo from 02/2018 showed EF of 55%. Will consider repeating echo - Neurology is consulted and performing further workup including carotid duplex, MRA/MRI of brain and blood test HTN - Currently stable HLD - Continue Crestor - Currently on Aspirin Seizure disorder - Pt on home medication Dilantin - per primary care management Case will be discussed with attending, Dr. Graves <Timothy Graves - Last Filed: 10/02/18 22:35> Objective - Vital Signs/Intake and Output Vital Signs (last 24 hours): Temp Pulse Resp BP Pulse Ox 98.5 F 97 H 20 126/79 95 10/02/18 15:31 10/02/18 16:00 10/02/18 15:31 10/02/18 15:31 10/02/18 15:31 - Medications Medications: Current Medications Aspirin (Ecotrin) 81 mg PO DAILY [facility] Last Admin: 10/02/18 10:25 Dose: 81 mg Enoxaparin Sodium (Lovenox) 40 mg SC DAILY [facility] Last Admin: 10/02/18 10:31 Dose: 40 mg Levothyroxine Sodium (Synthroid) 50 mcg PO DAILY@0630 [facility] Last Admin: 10/02/18 05:54 Dose: 50 mcg Pantoprazole Sodium (Protonix Ec Tab) 20 mg PO BID [facility] Last Admin: 10/02/18 17:47 Dose: 20 mg Phenytoin Sodium (Dilantin) 100 mg PO TID [facility] Last Admin: 10/02/18 17:47 Dose: 100 mg Rosuvastatin Calcium (Crestor) 10 mg PO HS [facility] Last Admin: 10/02/18 21:16 Dose: 10 mg - Labs Labs: 10/01/18 14:09 10/01/18 14:09 PT 12.4 SECONDS (9.7-12.2) H 10/01/18 14:09 INR 1.1 10/01/18 14:09 APTT 30 SECONDS (21-34) 10/01/18 14:09 Assessment and Plan - Assessment and Plan (Free Text) Assessment: Patient seen and evaluated personally by me. Plan of care d/w the medical res ident and as documented
--- NOTE | 2018-10-02 14:06 | MRI ---
Date of service: 10/02/2018 PROCEDURE: Magnetic Resonance Angiography Brain HISTORY: H/O Seizures, H/O dizziness, Vertigo, H/O CVA COMPARISON: No prior study available comparison. TECHNIQUE: 3D time of flight MR angiography of the intracranial arteries was performed. Rotating maximum intensity projection images were generated. FINDINGS: INTERNAL CAROTID ARTERIES: Unremarkable. The skull base, petrous, cavernous and supraclinoid segments are bilaterally widely patient. ANTERIOR CEREBRAL ARTERIES: Unremarkable. A1 and A2 segments are widely patent. Smaller distal branches unremarkable, as visualized. MIDDLE CEREBRAL ARTERIES: Unremarkable. M1 and M2 segments are widely patent. Perisylvian branches grossly symmetric. POSTERIOR CIRCULATION: Basilar Artery: Unremarkable. Distal Vertebral Arteries: There is mild asymmetry of the vertebral arteries left-sided which is larger in caliber/more dominant than the right side. The. Posterior Cerebral Arteries: Unremarkable. Posterior Inferior Cerebellar Arteries: Unremarkable. ANEURYSM/ VASCULAR MALFORMATIONS: No evidence of large aneurysm nor vascular malformation. OTHER FINDINGS: None. IMPRESSION: Unremarkable MR angiography of the brain.. No evidence of occlusion or significant stenosis. No evidence of large vented resume nor vascular malformation
[2018-10-02 17:24] LABS: RAPID PLASMA REAGIN NONREACTIVE (NONREACTIVE)
--- NOTE | 2018-10-02 21:54 | CP.PCM.PN ---
Subjective - Subjective Subjective: dictated Objective - Vital Signs/Intake and Output Vital Signs (last 24 hours): Temp Pulse Resp BP Pulse Ox 98.5 F 97 H 20 126/79 95 10/02/18 15:31 10/02/18 16:00 10/02/18 15:31 10/02/18 15:31 10/02/18 15:31 - Medications Medications: Current Medications Aspirin (Ecotrin) 81 mg PO DAILY [facility] Last Admin: 10/02/18 10:25 Dose: 81 mg Enoxaparin Sodium (Lovenox) 40 mg SC DAILY [facility] Last Admin: 10/02/18 10:31 Dose: 40 mg Levothyroxine Sodium (Synthroid) 50 mcg PO DAILY@0630 [facility] Last Admin: 10/02/18 05:54 Dose: 50 mcg Pantoprazole Sodium (Protonix Ec Tab) 20 mg PO BID [facility] Last Admin: 10/02/18 17:47 Dose: 20 mg Phenytoin Sodium (Dilantin) 100 mg PO TID [facility] Last Admin: 10/02/18 17:47 Dose: 100 mg Rosuvastatin Calcium (Crestor) 10 mg PO HS [facility] Last Admin: 10/02/18 21:16 Dose: 10 mg - Labs Labs: 10/01/18 14:09 10/01/18 14:09 PT 12.4 SECONDS (9.7-12.2) H 10/01/18 14:09 INR 1.1 10/01/18 14:09 APTT 30 SECONDS (21-34) 10/01/18 14:09
--- NOTE | 2018-10-03 00:01 | CP.PCM.PN ---
Subjective - Date & Time of Evaluation Date of Evaluation: 10/02/18 Time of Evaluation: 22:30 - Subjective Subjective: Says he is feeling better, negative carotid Doppler, Normal lipid profile, Normal TSH, Normal HbA1C, Pending SURESH, Normal Vitamin D. P/E Unchanged. Negative MRI and MRA Brain. Normal electrolytes, Normal TSH. Normal PSA, negative RPR. Dilantin is not effective in Controlling Seizures. Start Trileptal gradually Objective - Vital Signs/Intake and Output Vital Signs (last 24 hours): Temp Pulse Resp BP Pulse Ox 98.5 F 97 H 20 126/79 95 10/02/18 15:31 10/02/18 16:00 10/02/18 15:31 10/02/18 15:31 10/02/18 15:31 - Medications Medications: Current Medications Aspirin (Ecotrin) 81 mg PO DAILY [facility] Last Admin: 10/02/18 10:25 Dose: 81 mg Enoxaparin Sodium (Lovenox) 40 mg SC DAILY [facility] Last Admin: 10/02/18 10:31 Dose: 40 mg Levothyroxine Sodium (Synthroid) 50 mcg PO DAILY@0630 [facility] Last Admin: 10/02/18 05:54 Dose: 50 mcg Pantoprazole Sodium (Protonix Ec Tab) 20 mg PO BID [facility] Last Admin: 10/02/18 17:47 Dose: 20 mg Phenytoin Sodium (Dilantin) 100 mg PO TID [facility] Last Admin: 10/02/18 17:47 Dose: 100 mg Rosuvastatin Calcium (Crestor) 10 mg PO HS [facility] Last Admin: 10/02/18 21:16 Dose: 10 mg - Labs Labs: 10/01/18 14:09 10/01/18 14:09 PT 12.4 SECONDS (9.7-12.2) H 10/01/18 14:09 INR 1.1 10/01/18 14:09 APTT 30 SECONDS (21-34) 10/01/18 14:09 Assessment and Plan (1) Seizures Status: Acute (2) Dizziness Status: Acute (3) Near syncope Status: Acute (4) Abdominal pain Status: Acute (5) Chest pain Status: Acute (6) Dizziness Status: Acute (7) Near syncope Status: Acute (8) Weakness Status: Acute (9) CVA (cerebral vascular accident) Status: Acute
--- NOTE | 2018-10-03 00:31 | PN ---
DATE: 10/02/2018 SUBJECTIVE: The patient is seen by Neurology. He is for MRI. He is afebrile. No shortness of breath. PHYSICAL EXAMINATION: VITAL SIGNS: Blood pressure 115/74, pulse 52, respiratory rate 20, and temperature 98.3. LUNGS: Clear. No rale. No rhonchi. CARDIOVASCULAR SYSTEM: S1, S2 regular. ABDOMEN: Soft. ASSESSMENT: 1. Dizziness, near syncope, pending MRI. The patient has been seen by Neurology and Cardiology. The MRI shows atrophy and microvascular disease. MRA of the head is also benign. Pending carotid Doppler. 2. Hypertension. 3. Anxiety. 4. Hyperlipidemia. PLAN: Admit. Detailed orders written. Seen and examined. Israel Mesa MD
--- NOTE | 2018-10-03 05:07 | HP ---
CHIEF COMPLAINT: Syncope. HISTORY OF PRESENT ILLNESS: This is a 73-year-old white male, well known to me, with history of anxiety, seizure disorder, hypertension, hyperlipidemia who is compliant with his diet, medication, and followup. He lives with his . He came to emergency room. According to the patient, on the day of admission while he was walking, he felt weak and dizzy, he sat down to prevent a fall. He could not get up, and he felt weak, flush, sweaty. Ambulance was called in, and he was brought into emergency room. He denies any chest pain or palpitation. He denies any dyspnea on exertion, orthopnea or paroxysmal nocturnal dyspnea. He has weakness and headache and he has dizziness. He denies any history of seizure-like activity. He denies any tingling, numbness, or paresthesias of the extremities. He denies any history of dyspnea on exertion. No dyspnea at rest. He claims to be compliant with his medications. PAST MEDICAL HISTORY: Hypertension, seizure, hyperlipidemia. SOCIAL HISTORY: He is an ex-smoker, ex-Et[employer] user. CURRENT MEDICATIONS: At home, he takes omeprazole, aspirin, Synthroid, Dilantin, Cozaar, and Crestor. PHYSICAL EXAMINATION: GENERAL: An elderly male who is weak, calm. VITAL SIGNS: Blood pressure 155/85, pulse 63, respiratory rate 18, temperature 97.4. SKIN: Flushed. No bruises. No purpura. No petechiae. Normal turgor. HEENT: Atraumatic and normocephalic. Negative pallor. Negative jaundice. Extraocular movements are intact. NECK: Supple. No JVD. No lymph node. No thyromegaly. No carotid bruits. CHEST WALL: Bilateral symmetrical expansion. No deformity. No gynecomastia. LUNGS: Bilaterally clear. No rales. No rhonchi. CARDIOVASCULAR SYSTEM: PMI in the fifth intercostal space. S1 and S2 are regular. No heave noted. ABDOMEN: Soft and nontender. Bowel sounds are positive. RECTAL: Enlarged prostate. No tenderness. No masses. EXTREMITIES: No clubbing, cyanosis, or edema. CENTRAL NERVOUS SYSTEM: Awake, alert, and oriented x3. Cranial nerves II through XII are normal. Power 5/5 x4. Plantars are downgoing. ASSESSMENT: 1. Dizziness, near syncope, rule out cardiac arrhythmia, rule out drop in blood pressure, could be anxiety. 2. Hypertension. 3. Hyperlipidemia. PLAN: Admit. Detailed orders written. Seen and examined. Israel Mesa MD
[2018-10-03] MEDS: Levothyroxine 50 MCG TAB PO SCH (06:11)
[2018-10-03 07:26] LABS: ALB/GLOB RATIO 1.2 (1.0-2.1); ALBUMIN 3.6 g/dL (3.5-5.0); ALT/SGPT 29 U/L (21-72); AST/SGOT 28 U/L (17-59); BLOOD UREA NITROGEN 20 mg/dL (9-20); CALCIUM 8.7 mg/dl (8.6-10.4); GFR NON-AFRICAN AMERICAN > 60
[2018-10-03 07:44] LABS: BASO % 0.4 % (0.0-2.0); EOS # 0.2 K/uL (0.0-0.7); EOS % 3.2 % (0.0-4.0); HEMOGLOBIN 13.3 g/dL (12.0-18.0); LYMPH # 1.6 K/uL (1.0-4.3); LYMPH % 21.6 % (20.0-40.0); MEAN CELL VOLUME 94.1 fL (80.0-94.0); MEAN CORPUSCULAR HEMOGLOBIN 32.3 pg (27.0-31.0); MEAN CORPUSCULAR HGB CONC 34.3 g/dL (33.0-37.0); MEAN PLATELET VOLUME 10.5 fL (7.2-11.7); MONO # 0.9 K/uL (0.0-0.8); MONO % 12.5 % (0.0-10.0); NEUT # 4.5 K/uL (1.8-7.0); NEUT % 62.3 % (50.0-75.0); NRBC % 0.1 % (0.0-2.0); RBC 4.11 Mil/uL (4.40-5.90); RED CELL DISTRIBUTION WIDTH 13.2 % (11.5-14.5); WHITE BLOOD COUNT 7.2 K/uL (4.8-10.8)
[2018-10-03] MEDS: Enoxaparin 40 mg Syringe SC SCH (09:04)
[2018-10-03] MEDS: Pantoprazole 20 mg EC Tab PO SCH ×2 (09:05→18:50)
--- NOTE | 2018-10-03 10:20 | EEG ---
DATE: 10/03/2018 Rule out seizures. Rule out encephalopathy. The record was obtained while the patient was awake and drowsy. The record was symmetrically equal on both sides with a velocity of 6 to 7 cycles per second. The waves are fairly formed, fairly organized with posterior distribution. There are no abnormal discharges. No spike. No polyspike. No sharp wave. No focal slowing. No paroxysmal discharges. There were eye movement artifacts, electrode artifacts, and muscle movement artifacts. There are periods of drowsiness during which attenuation and slowing of the record were seen, and theta waves were seen. There are no periods of sleep. There were electrode artifacts, muscle movement artifacts, eye movement artifacts. In summary, this is an abnormal record significant for generalized slowing. This might be consistent with encephalopathy. Clinical correlation is recommended. Brina Rodriguez MD [facility]
--- NOTE | 2018-10-03 15:18 | CP.PCM.PN ---
<SanyatanikaHannah - Last Filed: 10/03/18 15:14> Subjective - Date & Time of Evaluation Date of Evaluation: 10/03/18 Time of Evaluation: 15:14 - Subjective Subjective: PGY3 progress note for cardiology Pt seen and examined at bedside. No acute events overnight. Pt continues to complain of dizziness while sitting in bed. Denies having any tennitus, CP, SOB, abd pain, N/V/D/C, F/C, palpitaitons. Objective - Vital Signs/Intake and Output Vital Signs (last 24 hours): Temp Pulse Resp BP Pulse Ox 98.0 F 63 20 124/79 98 10/03/18 07:00 10/03/18 07:00 10/03/18 07:00 10/03/18 07:00 10/03/18 07:00 - Medications Medications: Current Medications Aspirin (Ecotrin) 81 mg PO DAILY [facility] Last Admin: 10/03/18 09:05 Dose: 81 mg Enoxaparin Sodium (Lovenox) 40 mg SC DAILY [facility] Last Admin: 10/03/18 09:04 Dose: 40 mg Metronidazole (Flagyl) 500 mg in 100 mls @ 100 mls/hr IVPB Q8H [facility]; Protocol Sodium Chloride (Sodium Chloride 0.9%) 1,000 mls @ 75 mls/hr IV .[id number] [facility] Levothyroxine Sodium (Synthroid) 50 mcg PO DAILY@0630 [facility] Last Admin: 10/03/18 06:11 Dose: 50 mcg Oxcarbazepine (Trileptal) 150 mg PO BID [facility] Last Admin: 10/03/18 09:05 Dose: 150 mg Pantoprazole Sodium (Protonix Ec Tab) 20 mg PO BID [facility] Last Admin: 10/03/18 09:05 Dose: 20 mg Phenytoin Sodium (Dilantin) 100 mg PO TID [facility] Last Admin: 10/03/18 13:37 Dose: 100 mg Rosuvastatin Calcium (Crestor) 10 mg PO HS [facility] Last Admin: 10/02/18 21:16 Dose: 10 mg - Labs Labs: 10/03/18 06:32 10/03/18 06:32 PT 12.4 SECONDS (9.7-12.2) H 10/01/18 14:09 INR 1.1 01/07/19 14:09 APTT 30 SECONDS (21-34) 10/01/18 14:09 - Constitutional Appears: Non-toxic, No Acute Distress - Head Exam Head Exam: ATRAUMATIC, NORMOCEPHALIC - ENT Exam ENT Exam: Mucous Membranes Moist - Respiratory Exam Respiratory Exam: Clear to Ausculation Bilateral. absent: Rales, Rhonchi, Wheezes - Cardiovascular Exam Cardiovascular Exam: REGULAR RHYTHM, +S1, +S2. absent: Gallop, Rubs, Murmur - GI/Abdominal Exam GI & Abdominal Exam: Soft, Normal Bowel Sounds. absent: Distended, Firm, Guarding, Rigid, Tenderness, Organomegaly - Neurological Exam Neurological Exam: Alert, Awake, Oriented x3 - Psychiatric Exam Psychiatric exam: Normal Affect, Normal Mood - Skin Skin Exam: Dry, Intact, Normal Color, Warm Assessment and Plan - Assessment and Plan (Free Text) Assessment: 73 year old male with past medical history of HTN, seizure d/o, hypothyroidism, and HLD is admitted for presyncope. MRi of brain showed atrophy and chronic microvascular ischemic disease. Initial EKG showed NSR and troponins x 2 were negative. Syncope - may be 2/2 innner ear dysfunction - Cardiac cath done in 03/2018 showed 55% stenosis of proximla LAD - Echo from 02/2018 showed EF of 55%. - MRI of brain showed only chronic microvascular ischemic changes. - Repeat echo pending - Will check orthostatics HTN - Currently stable HLD - Continue Crestor - Currently on Aspirin Seizure disorder - per neuro management Case discussed with attending, Dr. Graves <Timothy Graves - Last Filed: 10/03/18 22:18> Objective - Vital Signs/Intake and Output Vital Signs (last 24 hours): Temp Pulse Resp BP Pulse Ox 98.2 F 65 20 129/86 95 10/03/18 15:00 10/03/18 16:00 10/03/18 15:00 10/03/18 15:00 10/03/18 20:00 - Medications Medications: Current Medications Aspirin (Ecotrin) 81 mg PO DAILY [facility] Last Admin: 10/03/18 09:05 Dose: 81 mg Enoxaparin Sodium (Lovenox) 40 mg SC DAILY [facility] Last Admin: 10/03/18 09:04 Dose: 40 mg Metronidazole (Flagyl) 500 mg in 100 mls @ 100 mls/hr IVPB Q8H [facility]; Protocol Last Admin: 10/03/18 18:51 Dose: 100 mls/hr Sodium Chloride (Sodium Chloride 0.9%) 1,000 mls @ 75 mls/hr IV .[id number] [facility] Last Admin: 10/03/18 15:35 Dose: 75 mls/hr Levothyroxine Sodium (Synthroid) 50 mcg PO DAILY@0630 [facility] Last Admin: 10/03/18 06:11 Dose: 50 mcg Oxcarbazepine (Trileptal) 150 mg PO BID [facility] Last Admin: 10/03/18 18:50 Dose: 150 mg Pantoprazole Sodium (Protonix Ec Tab) 20 mg PO BID [facility] Last Admin: 10/03/18 18:50 Dose: 20 mg Phenytoin Sodium (Dilantin) 100 mg PO TID [facility] Last Admin: 10/03/18 18:50 Dose: 100 mg Rosuvastatin Calcium (Crestor) 10 mg PO HS [facility] Last Admin: 10/02/18 21:16 Dose: 10 mg - Labs Labs: 10/03/18 06:32 10/03/18 06:32 PT 12.4 SECONDS (9.7-12.2) H 10/01/18 14:09 INR 1.1 10/01/18 14:09 APTT 30 SECONDS (21-34) 10/01/18 14:09 Assessment and Plan - Assessment and Plan (Free Text) Assessment: Patient seen and evaluated personally by me. Plan of care d/w the medical illustrator and as documented
[2018-10-03] MEDS: Sodium Chloride 0.9% 1,000 ML IV SCH (15:35)
[2018-10-03] MEDS: metroNIDAZOLE IV 500 mg/100 ml 500 MG/100 ML BAG IVPB SCH (18:51)
--- NOTE | 2018-10-03 20:48 | CP.PCM.PN ---
Subjective - Subjective Subjective: dictated Objective - Vital Signs/Intake and Output Vital Signs (last 24 hours): Temp Pulse Resp BP Pulse Ox 98.2 F 65 20 129/86 95 10/03/18 15:00 10/03/18 16:00 10/03/18 15:00 10/03/18 15:00 10/03/18 20:00 - Medications Medications: Current Medications Aspirin (Ecotrin) 81 mg PO DAILY [facility] Last Admin: 10/03/18 09:05 Dose: 81 mg Enoxaparin Sodium (Lovenox) 40 mg SC DAILY [facility] Last Admin: 10/03/18 09:04 Dose: 40 mg Metronidazole (Flagyl) 500 mg in 100 mls @ 100 mls/hr IVPB Q8H [facility]; Protocol Last Admin: 10/03/18 18:51 Dose: 100 mls/hr Sodium Chloride (Sodium Chloride 0.9%) 1,000 mls @ 75 mls/hr IV .[id number] [facility] Last Admin: 10/03/18 15:35 Dose: 75 mls/hr Levothyroxine Sodium (Synthroid) 50 mcg PO DAILY@0630 [facility] Last Admin: 10/03/18 06:11 Dose: 50 mcg Oxcarbazepine (Trileptal) 150 mg PO BID [facility] Last Admin: 10/03/18 18:50 Dose: 150 mg Pantoprazole Sodium (Protonix Ec Tab) 20 mg PO BID [facility] Last Admin: 10/03/18 18:50 Dose: 20 mg Phenytoin Sodium (Dilantin) 100 mg PO TID [facility] Last Admin: 10/03/18 18:50 Dose: 100 mg Rosuvastatin Calcium (Crestor) 10 mg PO HS [facility] Last Admin: 10/02/18 21:16 Dose: 10 mg - Labs Labs: 10/03/18 06:32 10/03/18 06:32 PT 12.4 SECONDS (9.7-12.2) H 10/01/18 14:09 INR 1.1 10/01/18 14:09 APTT 30 SECONDS (21-34) 10/01/18 14:09
--- NOTE | 2018-10-03 22:46 | CP.PCM.PN ---
Subjective - Date & Time of Evaluation Date of Evaluation: 10/03/18 Time of Evaluation: 21:30 - Subjective Subjective: Patient is doing the same, he is off Dilantin and receives Trileptal is started gradually at 150 mg BID, today will go up to 300 mg BID. There is no seizures. EEG is slow and is consistent with Encephalopathy. New lab work is seen. He had an Echo and is followed by Cardiology. MRI Brain is not showing any new CVA. H/O Seizure disorder. Normal VS. Objective - Vital Signs/Intake and Output Vital Signs (last 24 hours): Temp Pulse Resp BP Pulse Ox 98.2 F 65 20 129/86 95 10/03/18 15:00 10/03/18 16:00 10/03/18 15:00 10/03/18 15:00 10/03/18 20:00 - Medications Medications: Current Medications Aspirin (Ecotrin) 81 mg PO DAILY [facility] Last Admin: 10/03/18 09:05 Dose: 81 mg Enoxaparin Sodium (Lovenox) 40 mg SC DAILY [facility] Last Admin: 10/03/18 09:04 Dose: 40 mg Metronidazole (Flagyl) 500 mg in 100 mls @ 100 mls/hr IVPB Q8H [facility]; Protocol Last Admin: 10/03/18 18:51 Dose: 100 mls/hr Sodium Chloride (Sodium Chloride 0.9%) 1,000 mls @ 75 mls/hr IV .[id number] [facility] Last Admin: 10/03/18 15:35 Dose: 75 mls/hr Levothyroxine Sodium (Synthroid) 50 mcg PO DAILY@0630 [facility] Last Admin: 10/03/18 06:11 Dose: 50 mcg Oxcarbazepine (Trileptal) 150 mg PO BID [facility] Last Admin: 10/03/18 18:50 Dose: 150 mg Oxcarbazepine (Trileptal) 300 mg PO BID [facility] Pantoprazole Sodium (Protonix Ec Tab) 20 mg PO BID [facility] Last Admin: 10/03/18 18:50 Dose: 20 mg Phenytoin Sodium (Dilantin) 100 mg PO TID [facility] Last Admin: 10/03/18 18:50 Dose: 100 mg Rosuvastatin Calcium (Crestor) 10 mg PO HS [facility] Last Admin: 10/02/18 21:16 Dose: 10 mg - Labs Labs: 10/03/18 06:32 10/03/18 06:32 PT 12.4 SECONDS (9.7-12.2) H 10/01/18 14:09 INR 1.1 10/01/18 14:09 APTT 30 SECONDS (21-34) 10/01/18 14:09 Assessment and Plan (1) Seizures Status: Acute (2) Dizziness Status: Acute (3) Near syncope Status: Acute (4) Abdominal pain Status: Acute (5) Chest pain Status: Acute (6) Dizziness Status: Acute (7) Near syncope Status: Acute (8) Weakness Status: Acute (9) CVA (cerebral vascular accident) Status: Acute
--- NOTE | 2018-10-03 23:57 | PN ---
DATE: 10/03/2018 SUBJECTIVE: The patient has diarrhea. He feels . He has diarrhea persisted since last night. He feels weak, dizzy. He has abdominal discomfort. He has nausea. No vomiting. No fever. He has chills. PHYSICAL EXAMINATION VITAL SIGNS: Blood pressure 129/86, pulse 70, respiratory rate 20, temperature 98.2. LUNGS: Clear. CARDIOVASCULAR SYSTEM: S1 and S2 regular. ABDOMEN: Epigastric tenderness. ASSESSMENT: 1. Gastroenteritis with diarrhea. 2. Near-syncope. 3. Hypertension. 4. Seizure disorder. PLAN: IV fluids. Hydration. Monitor the patient. Israel Mesa MD
[2018-10-04] MEDS: metroNIDAZOLE IV 500 mg/100 ml 500 MG/100 ML BAG IVPB SCH ×2 (00:34→08:34)
--- NOTE | 2018-10-04 00:56 | CARD ---
APPROVED REPORT Date of service: 10/03/2018 EXAM: Two-dimensional and M-mode echocardiogram with Doppler and color Doppler. INDICATION Syncope 2D DIMENSIONS IVSd0.6 (0.7-1.1cm)Aortic Root (2D)3.2 (2.0-3.7cm) LVDd4.4 (3.9-5.9cm)PWd0.8 (0.7-1.1cm) LA Mzmlrx56 (18-58mL)LVDs3.2 (2.5-4.0cm) FS (%) 26.4 %LVEF (%)51.9 (>50%) LVEF (Burns's)67.87 % M-Mode DIMENSIONS RVDd2.36 (2.1-3.2cm)Left Atrium (MM)3.90 (2.5-4.0cm) IVSd0.70 (0.7-1.1cm)Aortic Root2.81 (2.2-3.7cm) LVDd6.05 (4.0-5.6cm)Aortic Cusp Exc.2.19 (1.5-2.0cm) PWd0.81 (0.7-1.1cm)FS (%) 33 % LVDs4.06 (2.0-3.8cm)TAPSE18.39 cm LVEF (%)61 (>50%) Mitral Valve MV E Lbtcxkzn99.8cm/sMV A Wpyyzviy10.8cm/sE/A ratio0.8 TDI Lateral E' Peak V8.68cm/sMedial E' Peak V6.93cm/sE/Lateral E'7.1 E/Medial E'8.9 Tricuspid Valve TR Peak Kabnooav673hy/sTR Peak Gr.80gvUqEBTD90mkLk LEFT VENTRICLE The Left Ventricle is mildly dilated. There is normal left ventricular wall thickness. Left ventricle systolic function is normal. The Ejection Fraction is 65-70%. There is normal LV segmental wall motion. Tissue Doppler imaging reveals abnormal left ventricular diastolic dysfunction. RIGHT VENTRICLE The right ventricle is normal size. There is normal right ventricular wall thickness. The right ventricular systolic function is normal. AORTIC VALVE The aortic valve is normal in structure. No aortic regurgitation is present. There is no aortic valvular stenosis. MITRAL VALVE The mitral valve is normal in structure. There is no evidence of mitral valve prolapse. There is no mitral valve stenosis. There is no mitral valve regurgitation noted. TRICUSPID VALVE The tricuspid valve is normal in structure. There is mild tricuspid regurgitation. Right ventricular systolic pressure is estimated at 50-60 mmHg. There is moderate-severe pulmonary hypertension. PULMONIC VALVE The pulmonic valve is not well visualized. There is mild pulmonic valvular regurgitation. GREAT VESSELS The aortic root is normal in size. PERICARDIAL EFFUSION There is no significant pericardial effusion. <Conclusion> Left ventricle systolic function is normal. The Ejection Fraction is 65-70%. Diastolic dysfunction. No aortic regurgitation is present. There is no mitral valve regurgitation noted. There is mild tricuspid regurgitation. There is moderate-severe pulmonary hypertension. There is mild pulmonic valvular regurgitation.
[2018-10-04] MEDS: Sodium Chloride 0.9% 1,000 ML IV SCH (05:49)
[2018-10-04] MEDS: Levothyroxine 50 MCG TAB PO SCH (05:49)
[2018-10-04 08:45] VITALS: BP 154/87; PULSE 71; TEMP 98.1; O2SAT 93
[2018-10-04] MEDS: Pantoprazole 20 mg EC Tab PO SCH (10:31)
[2018-10-04] MEDS: Enoxaparin 40 mg Syringe SC SCH (10:36)
--- NOTE | 2018-10-04 13:04 | CP.PCM.PN ---
Subjective - Date & Time of Evaluation Date of Evaluation: 10/04/18 Time of Evaluation: 11:30 - Subjective Subjective: patient seen today, awake, alert, oriented to person and place, forgetful denies any abdominal pain, N/V/D No overnihgt events reported by RN no reported diarrhea vss and labs reviewed- stable oob ambulating the hallway with steady gait Objective - Vital Signs/Intake and Output Vital Signs (last 24 hours): Temp Pulse Resp BP Pulse Ox 98.1 F 71 20 154/87 H 93 L 10/04/18 07:35 10/04/18 07:35 10/04/18 07:35 10/04/18 07:35 10/04/18 07:35 Intake and Output: 10/04/18 10/04/18 06:59 18:59 Intake Total 100 Balance 100 - Medications Medications: Current Medications Aspirin (Ecotrin) 81 mg PO DAILY [facility] Last Admin: 10/04/18 10:30 Dose: 81 mg Enoxaparin Sodium (Lovenox) 40 mg SC DAILY [facility] Last Admin: 10/04/18 10:36 Dose: 40 mg Metronidazole (Flagyl) 500 mg in 100 mls @ 100 mls/hr IVPB Q8H [facility]; Protocol Last Admin: 10/04/18 08:34 Dose: 100 mls/hr Sodium Chloride (Sodium Chloride 0.9%) 1,000 mls @ 75 mls/hr IV .[id number] [facility] Last Admin: 10/04/18 05:49 Dose: 75 mls/hr Levothyroxine Sodium (Synthroid) 50 mcg PO DAILY@0630 [facility] Last Admin: 10/04/18 05:49 Dose: 50 mcg Oxcarbazepine (Trileptal) 150 mg PO BID [facility] Last Admin: 10/04/18 10:30 Dose: 150 mg Oxcarbazepine (Trileptal) 300 mg PO BID [facility] Last Admin: 10/04/18 10:30 Dose: 300 mg Pantoprazole Sodium (Protonix Ec Tab) 20 mg PO BID [facility] Last Admin: 10/04/18 10:31 Dose: 20 mg Phenytoin Sodium (Dilantin) 100 mg PO TID [facility] Last Admin: 10/03/18 18:50 Dose: 100 mg Rosuvastatin Calcium (Crestor) 10 mg PO HS [facility] Last Admin: 10/03/18 22:59 Dose: 10 mg - Labs Labs: 10/03/18 06:32 10/03/18 06:32 PT 12.4 SECONDS (9.7-12.2) H 10/01/18 14:09 INR 1.1 10/01/18 14:09 APTT 30 SECONDS (21-34) 10/01/18 14:09 Assessment and Plan - Assessment and Plan (Free Text) Assessment: A/P 73 year old male with a history of HTN, seizure, and hyperlipidemia admitted with near syncope MRI -Atrophy and chronic microvascular ischemic disease. MRA head - negative echo - Normal ejection fraction D/w Dr. Mesa, cleared for discharge home otday and f/u with Dr. oglesby office and Dr. Mesa office in 1 week Discharge plan discussed with patient RX given upon discharge
--- NOTE | 2018-10-04 13:17 | VASCLAB ---
Date of service: 10/02/2018 PROCEDURE: Carotid Duplex Exam. HISTORY: CVA COMPARISON: None available. TECHNIQUE: Grayscale and duplex Doppler evaluation of the cervical carotid and vertebral arteries were performed. The common carotid, carotid bifurcations and cervical Internal Carotid Artery (ICA) and proximal External Carotid Artery (ECA) were evaluated. The vertebral arteries were evaluated for gross patency and flow direction. Report prepared by Maksim Izaguirre, BS, RVT FINDINGS: RIGHT CAROTID ARTERIES: 1. Common Carotid Artery: No significant focal plaque formation of the right common carotid artery. Maximum Peak Systolic velocity: 81 cm/sec: End-diastolic velocity 12 cm/sec. 2. Carotid Bifurcation: Calcific plaque formation. Maximum Peak Systolic velocity: 66 cm/sec: End-diastolic velocity 15 cm/sec. 3. Internal Carotid Artery: Moderate plaque formation of the right proximal ICA which does not results in hemodynamically significant stenosis. Plaque description: Calcific 3.1. Proximal Segment: Peak systolic velocity 74 cm/sec: End-diastolic velocity 23 cm/sec - % stenosis 0-15% 3.2. Middle Segment: Peak systolic velocity 72 cm/sec: End-diastolic velocity 24 cm/sec - % stenosis 0-15% 3.3. Distal Segment: Peak systolic velocity 87 cm/sec: End-diastolic velocity 28 cm/sec - % stenosis 0-15% 4. External Carotid Artery: No significant focal plaque formation. Peak systolic velocity 103 cm/sec 5. ICA/CCA Ratio: 1.1 LEFT CAROTID ARTERIES: 1. Common Carotid Artery: No significant focal plaque formation of the left common carotid artery. Maximum Peak Systolic velocity: 81 cm/sec: End-diastolic velocity 14 cm/sec. 2. Carotid Bifurcation: Calcific plaque formation. Maximum Peak Systolic velocity: 92 cm/sec: End-diastolic velocity 16 cm/sec. 3. Internal Carotid Artery: Minimal plaque formation of the left proximal ICA which does not result in hemodynamically significant stenosis. Plaque description: Calcific 3.1. Proximal Segment: Peak systolic velocity 67 cm/sec: End-diastolic velocity 21 cm/sec - % stenosis 0-15% 3.2. Middle Segment: Peak systolic velocity 68 cm/sec: End-diastolic velocity 21 cm/sec - % stenosis 0-15% 3.3. Distal Segment: Peak systolic velocity 64 cm/sec: End-diastolic velocity 20 cm/sec - % stenosis 0-15% 4. External Carotid Artery: No significant focal plaque formation. Peak systolic velocity 89 cm/sec 5. ICA/CCA Ratio: 1.1 VERTEBRAL ARTERIES: 1. Right Vertebral Artery: The right vertebral artery flow direction is antegrade. 2. Left Vertebral Artery: The left vertebral artery flow direction is antegrade. OTHER FINDINGS: 1. Right Brachial Blood pressure: 108 mmHg. 2. Left Brachial Blood pressure: 102 mmHg. 3. No atherosclerotic calcification present IMPRESSION: RIGHT: Duplex scan does not suggest hemodynamically significant stenosis of the right extracranial carotid arteries. LEFT: Duplex scan does not suggest hemodynamically significant stenosis of the left extracranial carotid arteries.
--- NOTE | 2018-10-04 20:51 | CP.PCM.DIS ---
Provider - Provider Date of Admission: 10/01/18 15:58 Attending physician: Israel Mesa MD Consults: 10/01/18 19:32 Cardiology Consult Routine Comment: Consulting Provider: Timothy Graves Consulting Physician: Timothy Graves Reason for Consult: syncope Neurology Consult Routine Comment: Consulting Provider: Brina Rodriguez Consulting Physician: Brina Rodriguez Reason for Consult: syncope Hospital Course - Lab Results Lab Results: Most Recent Lab Values WBC 7.2 K/uL (4.8-10.8) 10/03/18 06:32 RBC 4.11 Mil/uL (4.40-5.90) L 10/03/18 06:32 Hgb 13.3 g/dL (12.0-18.0) 10/03/18 06:32 Hct 38.6 % (35.0-51.0) 10/03/18 06:32 MCV 94.1 fL (80.0-94.0) H 10/03/18 06:32 MCH 32.3 pg (27.0-31.0) H 10/03/18 06:32 MCHC 34.3 g/dL (33.0-37.0) 10/03/18 06:32 RDW 13.2 % (11.5-14.5) 10/03/18 06:32 Plt Count 141 K/uL (130-400) 10/03/18 06:32 MPV 10.5 fL (7.2-11.7) 10/03/18 06:32 Neut % (Auto) 62.3 % (50.0-75.0) 10/03/18 06:32 Lymph % (Auto) 21.6 % (20.0-40.0) 10/03/18 06:32 [place] % (Auto) 12.5 % (0.0-10.0) H 10/03/18 06:32 Eos % (Auto) 3.2 % (0.0-4.0) 10/03/18 06:32 Baso % (Auto) 0.4 % (0.0-2.0) 10/03/18 06:32 Neut # (Auto) 4.5 K/uL (1.8-7.0) 10/03/18 06:32 Lymph # (Auto) 1.6 K/uL (1.0-4.3) 10/03/18 06:32 Slope # (Auto) 0.9 K/uL (0.0-0.8) H 10/03/18 06:32 Eos # (Auto) 0.2 K/uL (0.0-0.7) 10/03/18 06:32 Baso # (Auto) 0.0 K/uL (0.0-0.2) 10/03/18 06:32 PT 12.4 SECONDS (9.7-12.2) H 10/01/18 14:09 INR 1.1 10/01/18 14:09 APTT 30 SECONDS (21-34) 10/01/18 14:09 Sodium 133 mmol/L (132-148) 10/03/18 06:32 Potassium 4.1 mmol/L (3.6-5.2) 10/03/18 06:32 Chloride 101 mmol/L (98-107) 10/03/18 06:32 Carbon Dioxide 26 mmol/L (22-30) 10/03/18 06:32 Anion Gap 10 (10-20) 10/03/18 06:32 BUN 20 mg/dL (9-20) 10/03/18 06:32 Creatinine 0.8 mg/dL (0.8-1.5) 10/03/18 06:32 Est GFR ( Amer) > 60 10/03/18 06:32 Est GFR (Non-Af Amer) > 60 10/03/18 06:32 Random Glucose 96 mg/dL (75-110) 10/03/18 06:32 Hemoglobin A1c 5.2 % (4.2-6.5) 10/02/18 07:18 Calcium 8.7 mg/dl (8.6-10.4) 10/03/18 06:32 Total Bilirubin 0.5 mg/dL (0.2-1.3) 10/03/18 06:32 AST 28 U/L (17-59) 10/03/18 06:32 ALT 29 U/L (21-72) 10/03/18 06:32 Alkaline Phosphatase 56 U/L (38-126) 10/03/18 06:32 Total Creatine Kinase 565 U/L (55-170) H 10/01/18 20:24 CK-MB (Mass) 13.2 ng/mL (0.0-3.38) H 10/01/18 20:24 Troponin I < 0.0120 ng/mL (0.00-0.120) 10/01/18 20:24 Total Protein 6.5 g/dL (6.3-8.3) 10/03/18 06:32 Albumin 3.6 g/dL (3.5-5.0) 10/03/18 06:32 Globulin 2.9 gm/dL (2.2-3.9) 10/03/18 06:32 Albumin/Globulin Ratio 1.2 (1.0-2.1) 10/03/18 06:32 Triglycerides 68 mg/dL (0-149) 10/02/18 07:18 Cholesterol 178 mg/dL (0-199) 10/02/18 07:18 LDL Cholesterol Direct 89 mg/dL (0-129) 10/02/18 07:18 HDL Cholesterol 64 mg/dL (30-70) 10/02/18 07:18 Prostate Specific Ag 0.285 ng/mL (0.00-4.0) 10/02/18 07:18 Vitamin B12 318 pg/mL (239-931) 10/02/18 07:18 25-OH Vitamin D Total 33.6 NG/ML (30.0-100.0) 10/02/18 07:18 TSH 3rd Generation 0.78 mIU/L (0.46-4.68) 10/01/18 20:24 Urine Color Yellow (YELLOW) 10/01/18 17:57 Urine Clarity Clear (Clear) 10/01/18 17:57 Urine pH 6.0 (5.0-8.0) 10/01/18 17:57 Ur Specific [place] 1.008 (1.003-1.030) 10/01/18 17:57 Urine Protein Negative mg/dL (NEGATIVE) 10/01/18 17:57 Urine Glucose (UA) Normal mg/dL (Normal) 10/01/18 17:57 Urine Ketones Trace mg/dL (NEGATIVE) 10/01/18 17:57 Urine Blood Negative (NEGATIVE) 10/01/18 17:57 Urine Nitrate Negative (NEGATIVE) 10/01/18 17:57 Urine Bilirubin Negative (NEGATIVE) 10/01/18 17:57 Urine Urobilinogen Normal mg/dL (0.2-1.0) 10/01/18 17:57 Ur Leukocyte Esterase Neg Benny/uL (Negative) 10/01/18 17:57 Urine WBC (Auto) < 1 /hpf (0-5) 10/01/18 17:57 Phenytoin 5.1 ug/mL (10-20) L 10/03/18 06:32 SURESH 6 Profile Negative (NEGATIVE) 10/02/18 07:18 RPR Nonreactive (NONREACTIVE) 10/02/18 07:18 Influenza Typ A,B (EIA) Negative for flu a/b (NEGATIVE) 10/01/18 14:09 Discharge Exam - Head Exam Head Exam: ATRAUMATIC, NORMOCEPHALIC Discharge Plan - Discharge Medications Prescriptions: Rosuvastatin Calcium [Crestor] 10 mg PO HS #30 tab Phenytoin, Extended [Dilantin] 100 mg PO TID #90 cer Aspirin [Ecotrin] 81 mg PO DAILY #30 tabec Levothyroxine [Synthroid] 0.05 mg PO 0600 #30 tab - Follow Up Plan Condition: STABLE Disposition: HOME/ ROUTINE Instructions: Heart Healthy Diet, Stroke (DC), Vertigo (a Type of Dizziness) (DC), Seizures, Adult (DC), Aspirin, Levothyroxine, Phenytoin, Rosuvastatin, Near Fainting (DC) Additional Instructions: Please follow up with Dr. Mesa office in 1 week Please follow up with Dr. Mendoza office in 2 week( follow up visit ) for seizure Continue medication as per med. rec. Referrals: Carmine Mendoza MD [Staff Provider] - Israel Mesa MD [Staff Provider] -
--- NOTE | 2018-10-05 00:09 | CP.PCM.PN ---
Subjective - Date & Time of Evaluation Date of Evaluation: 10/04/18 Time of Evaluation: 20:35 - Subjective Subjective: He was doing better, walking around without dizziness, oriented to time, persons, place. Memory is back to him after his initial confusion on admission, labs are seen and are accepted. He is discharged. Objective - Vital Signs/Intake and Output Vital Signs (last 24 hours): Temp Pulse Resp BP Pulse Ox 98.1 F 71 20 154/87 H 93 L 10/04/18 07:35 10/04/18 07:35 10/04/18 07:35 10/04/18 07:35 10/04/18 07:35 - Labs Labs: 10/03/18 06:32 10/03/18 06:32 PT 12.4 SECONDS (9.7-12.2) H 10/01/18 14:09 INR 1.1 10/01/18 14:09 APTT 30 SECONDS (21-34) 10/01/18 14:09 Assessment and Plan (1) Seizures Status: Ruled-out (2) Dizziness Status: Resolved (3) Near syncope Status: Resolved (4) Abdominal pain Status: Resolved (5) Chest pain Status: Resolved (6) Dizziness Status: Acute (7) Near syncope Status: Acute (8) Weakness Status: Resolved (9) CVA (cerebral vascular accident) Status: Ruled-out
--- NOTE | 2018-10-05 08:42 | DS ---
DISCHARGE DIAGNOSES: 1. Syncope, vasovagal. 2. Gastroenteritis. 3. Dehydration. 4. Hypertension. 5. Seizure disorder. HISTORY OF PRESENT ILLNESS: This is a 73-year-old white male with history of hypertension, seizure disorder, hyperlipidemia, is complaint with diet, medication and followup. He came in because of dizziness, near syncope. He denied any head injury, seizure-like activity, tongue bite, loss of consciousness. The patient was admitted to the floor, started on NeuroJet, fall and seizure precautions. PHYSICAL EXAMINATION: VITAL SIGNS: Blood pressure 154/87, pulse 71, respiratory rate 20, temperature 98.1. LUNGS: Clear. CVS: S1 and S2 regular. ABDOMEN: Soft. The patient was improved. He was discharged. LABORATORY DATA: WBC 7.2, hemoglobin 13.3, hematocrit 38.6, and platelets 141. Sodium 133, potassium 4.1, chloride 101, bicarbonate 26, BUN 20, and creatinine 0.8. CONDITION UPON DISCHARGE: Stable. Israel Mesa MD
== END 2018-10-04 13:28 | disposition home or self-care (01) ==
LOC: C.ER 12:44 → C.6T 15:58
PROVIDERS: ADMIT Internal Medicine; ATTEND Internal Medicine
DX: R55 Syncope and collapse (principal); I11.9 Hypertensive heart disease without heart failure; E86.0 Dehydration; K52.9 Noninfective gastroenteritis and colitis, unspecified; G40.909 Epilepsy, unspecified, not intractable, without status epilepticus; G93.40 Encephalopathy, unspecified; J43.9 Emphysema, unspecified; Z79.82 Long term (current) use of aspirin; Z87.891 Personal history of nicotine dependence; E03.9 Hypothyroidism, unspecified; E78.00 Pure hypercholesterolemia, unspecified; E78.5 Hyperlipidemia, unspecified; F41.9 Anxiety disorder, unspecified
CPT/HCPCS: 36415; 70450; 70544; 70551; 71045; 80053; 80061; 80185; 81001; 82306; 82607; 83036; 84153; 84378; 84425; 84443; 84446; 84484; 85025; 85610; 85730; 86038; 86592; 87804; 93005; 93306; 93880; 95812; 96365; 96366; 96372; 97116; 97162; 97530; 99285; G0378; G8978; G8979; J1650; J7030